=== PATIENT | male | born 1985 | race Caucasian/White ===

== ENCOUNTER 2022-03-13 13:45 | Outpatient (RCR) | payer OTHER, SELFPAY ==
--- NOTE | 2022-01-02 19:14 | PT.OIE ---
Current Diagnoses Cervicalgia (01/02/22) Low back pain, unspecified (01/02/22) Muscle weakness (generalized) (01/02/22) Segmental and somatic dysfunction of sacral region (01/02/22) Visit Care Team Role Provider Type Chauncey Jaramillo DO Attending Provider Non-Staff Family Provider Primary Care Provider Referring Provider Specialty: Family Practice Address: [address] [place] [address], [id number] Email: Physical Therapy Initial Evaluation PT-OP-A Visit Information Start: 12/26/21 18:44 Freq: Status: Active Protocol: Document 01/02/22 14:33 LRN (Rec: 01/02/22 19:04 LRN [id number]) Out-Patient Physical Therapy Visit Information Visit Information Visit Type Initial Evaluation Visit Start Time 14:33 Visit Stop Time 15:26 Total Visit Minutes 53 Visit Number 1 Evaluation Information Evaluation Date 01/02/22 Precautions Precautions Neck pain/migraines with activity. PT-OP-B Current Condition Start: 12/26/21 18:44 Freq: Status: Active Protocol: Document 01/02/22 14:33 LRN (Rec: 01/02/22 19:04 LRN [id number]) Current Condition History of Current Condition Onset Date 1 yr ago after starting new job. Current Complaints Low back pain at level of PSIS 's, R>L, constant pain. History of Current Condition Experiencing constant pain in lower back. 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 Most of the things that is done requires a two person lift, but most do not ask for help. He feels he is broken because not having help available. did an xray and was sent to PT. Hoping to have an MRI. Pt feels he has a herniated disc due to his job. His father's uncle who is an MD believes it is a herniated disc. Has limited duty given by attending doctor (30 days), therefore can ask for help during this timeframe, otherwise not able to get help without a limited duty status . Sometimes sits slouched or lays on stomach. The only thing that helps is IBP 600 mg . Given 30 days limited duty on Dec 13. Pt is R handed. Prior Treatments and Tests X-ray 2 weeks ago. 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 Future Testing and Treatments Planned Plan course of action if not improving: PT > Injection > MRI > surgery (which pt would not want to do). Treatment Goals Patient/Caregiver Goals Pt goal with therapy is to: eliminate constant pain, further testing to determine reason for pain. Prior Functional Status Baseline Function- ADL's Independent Baseline Function- Mobility Independent Baseline Function- Work/School No back pain, soreness after first starting current job. Baseline Function- Other Exercising 2x/week for 1/2 mile runs, push ups and sit ups, planks. Current Functional Impairments (Reported) Functional Limitations- ADL's LBP with bending down and lift objects (case of water) at home. Not able to lie prone due to radiating RLE pain. Functional Limitations- Work/School Not able to ex due to neck and LBP after ex. Personal Factors Other Personal Factors That May Effect Pt job requiring Therapy/Recovery lifting, pushing, pulling of heavy objects, up to 400#. PT-OP-C Subjective Start: 12/26/21 18:44 Freq: Status: Active Protocol: Document 01/02/22 14:33 LRN (Rec: 01/02/22 19:04 LRN [id number]) Patient Questionnaires Oswestry Low Back Index Oswestry Score 30 Oswestry Impairment 20 to 39% Impaired (Score 20- 39) OP-PT Pain Assessment Pain Assessment Grid Paper Pain Assessment Grid Completed Yes Location Neck Pain Location Details Posterior neck pain Intensity 7 Scale Used Numeric (0 - 10) Description Aching,Tightness Frequency Constant Variations/Patterns Variable pain intensity creates migraines Pain Aggravating Factors Activity Pain Alleviating Factors Medication Other Pain Alleviating Factors IBP Low Back Pain Location Details Low back pain at level of PSIS 's, R>L, constant pain. 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 Pain Aggravating Factors Activity Pain Alleviating Factors Medication Other Pain Alleviating Factors IBP PT-OP-H Neuro Start: 12/26/21 18:44 Freq: Status: Active Protocol: Document 01/02/22 14:33 LRN (Rec: 01/02/22 19:04 LRN [id number]) Sensation Evaluation Gross Sensation Gross Sensation WNL Deep Tendon Reflex & Clonus Assessment Deep Tendon Reflex Bilateral Achilles Deep Tendon Reflex 3+ Normal But Brisk Bilateral Patellar Deep Tendon Reflex 2+ Normal PT-OP-J Posture/Palpation/Skin Start: 12/26/21 18:44 Freq: Status: Active Protocol: Document 01/02/22 14:33 LRN (Rec: 01/02/22 19:04 LRN [id number]) Posture Evaluation Position Standing Head/C-Spine Posture Forward Head T-Spine Posture Flattened L-Spine Posture Decreased Lordosis Arm Posture (L) Internally Rotated,(R) Internally Rotated Pelvis Posture Anteriorly Tilted,(R) PSIS Posterior Weight Distribution Balanced Hip Posture (L) Externally Rotated Knee Posture (L) Neutral,(R) Neutral Comments Posture Comments Wide stance, R shoulder low, mild dowagers hump, mild decr thoracic curve, trunk shift left. Palpation Assessment Location Low Back Palpation Location Bilateral PSIS' Palpation Findings Muscle Guarding,Tenderness Palpation Details mobility at L PSIS ( stuck L PSIS). PT-OP-K Range of Motion Start: 12/26/21 18:44 Freq: Status: Active Protocol: Document 01/02/22 14:33 LRN (Rec: 01/02/22 19:04 LR [id number]) Lumbar Spine Range of Motion Lumbar Spine Active Degrees Testing Position Standing Flexion 43 Extension 7 Lateral Flexion Left 13 Lateral Flexion Right 3 ROM Limitations Soft Tissue Tightness Comments Trunk Flexion is 43 deg?s with 30 deg?s hip flexion, Trunk extension is 7 deg?s with 5 deg?s hip extension. Hip Goniometric Range of Motion Hip Right Passive Testing Position Supine Straight Leg Raise 50 Internal Rotation 15 External Rotation 65 Left Passive Testing Position Supine Straight Leg Raise 45 Internal Rotation 10 External Rotation 45 PT-OP-L Special Tests Start: 12/26/21 18:44 Freq: Status: Active Protocol: Document 01/02/22 14:33 LRN (Rec: 01/02/22 19:04 [facility] [id number]) Special Tests Lumbar Spine Special Tests Prone Press Up Test Results Painful at level of PSIS's Straight Leg Raise Test Results 45 L, 50 R. Comments Pain due to LBP. Hip Special Tests [facility] Resisted Hip Flexion Test Results + bilaterally Comments Pain in LBP CHAS Test Results - bilaterally Comments Hip joint pain. PT-OP-M Strength Start: 12/26/21 18:44 Freq: Status: Active Protocol: Document 01/02/22 14:33 LRN (Rec: 01/02/22 19:04 LRN [id number]) Trunk Strength Trunk Manual Muscle Testing Testing Position Supine Core Stabilization Decreased core stability with resisted hip flex. Hand Zoo Veterinarian/Pinch Strength Hand Dominance Hand Dominance Right Knee Strength Knee Manual Muscle Testing Right Flexion (S2) 4- Good- Extension (L3) 4+ Good+ Left Flexion (S2) 5 Normal Extension (L3) 5 Normal Comments Generally 5/5 Ankle/Foot Strength Ankle and Foot Manual Muscle Testing Right Dorsiflexion (L4) 4 Good Comments Generally 5/5 except as indicated above. Left Comments Generally 5/5 Toe Strength Toe Manual Muscle Testing Right Great Toe Flexion 3+ Fair+ Left Great Toe Extension 5 Normal PT-OP-Q Treatments Start: 12/26/21 18:44 Freq: Status: Active Protocol: Document 01/02/22 14:33 LRN (Rec: 01/02/22 19:04 LRN [id number]) Therapeutic Exercises Prone Exercises LISET Prone Exercise Name LISET - held due to poor tolerance to prone positioning . Comments Pt did not tolerate and did not like being in prone positioning Standing Exercises Trunk Ext Standing Exercise Name Active trunk ext Reps/Minutes 5x Self-Care/Home Management Treatment Education Patient Education Home Exercise Program,Pain Management Other Education Discussed results of evaluation, goals, and plan of care (POC). Pt agreeable to goals and POC. Discussed and educated pt in use of ice modality for pain management and discussed use of ice or heat for pain, but recommended use of ice for first during daytime. Activities Self-Care/Home Management Activities I/S pt in standing trunk ext without increasing pain. PT-OP-T Assessment and Plan Start: 12/26/21 18:44 Freq: Status: Active Protocol: Document 01/02/22 14:33 LRN (Rec: 01/02/22 19:04 LRN [id number]) Physical Therapy Assessment Rehab Potential Rehabilitation Potential Good Evaluation Complexity Number of Personal Factors/Comorbidities 1-2 Number of Body Systems Impaired 4 or More Clinical Presentation at Evaluation Evolving Impairments Impairments Activity Tolerance,Pain,ROM, Soft Tissue Mobility,Strength, Transfers Goals Four Impairment Decreased core/pelvic strength /stability Short Term Goal (STG) Improve core strength with pt able to maintain core stability with MMT of LE's. STG Duration 02/01/22 Usp Goal (LTG) Improve core strength with pt able to return to his job with minimal onset of LBP and radiating LE pain. LTG Duration 03/17/22 Three Impairment Decreased trunk and hip mobility Short Term Goal (STG) Improve hip mobility with pt able to sit or drive without increase in LBP. STG Duration 02/01/22 Usp Goal (LTG) Improve trunk mobility with pt able to tolerate prone lying and exercise without onset of LBP or radiating LE pain. LTG Duration 03/17/22 Two Impairment Constant LBP w/radiating pain down R LE, and post neck pain. Impairment LBP at PSIS level & R LE sharp shooting pain rated 4-6/10 and constant. Neck pain rated 5-7/10 with onset of migraine headaches. Short Term Goal (STG) Decrease LBP to intermittent and eliminate R LE radiating pain STG Duration 02/01/22 Tax Analyst Goal (LTG) Eliminate LBP and neck pain with occasional mild onset of soreness with return to work. LTG Duration 03/17/22 One Impairment Lacks appropriate Short Term Goal (STG) STG: Pt will be educated in proper body mechanics for work , transfer and ADLs, and proper sitting and standing posture. STG Duration 02/01/22 Usp Goal (LTG) LTG: Pt will be independent and consistent with a self care HEP to manage his R LE pain with return to work. LTG Duration 03/17/22 Assessment Summary Assessment Pt presents with much muscle guarding and pain in the low back and hips with palpation and ROM. He shows symptoms of R sciatic nerve pain and mild signs of possible disc involvement (R ankle DF and Extensor Hallicus Longus weakness). He is having so much soft tissue involvement of muscle guarding and pain it is unclear where exactly his pain is coming from at this time. Reduction of his soft tissue guarding and pain reduction is needed to start. He demonstrates postural changes of a lateral trunk shift left, and slight weakness of R ankle DF (L4) and Big toe ext (L5). He has mobility at L PSIS ( stuck L SIJ), and decreased hip mobility L>R. Core and pelvic stability is lacking when resistance and strain is placed on his LE's. It is expected that the pt's rehabilitation may need extended time due to the chronic nature of his condition and his ongoing work duties although limited in nature. I would recommend the pt continue limited duty until his pain is minimized and his able to perform bending, squatting heavy lifting, pushing and pulling without initiating onset of LBP. The pt will benefit from skilled physical therapy for focus on decreasing soft tissue muscle guarding and pain, improving lumbar/hip mobility and for hip/core/ pelvic stabilization. Pt education will be focused on proper transfers, body mechanics, self care and home exercises. Physical Therapy Plan Frequency and Duration Frequency of Treatment 2x/Week Plan of Care Start Date 01/02/22 Plan of Care End Date 02/01/22 Therapeutic Interventions Therapeutic Interventions Aquatic Therapy,Home Exercise Program,Joint Mobilizations, Manual Therapy,Neuromuscular Re-education,Patient/Caregiver Education,Self-Care/Home Management,Soft Tissue Mobilization,Taping, Therapeutic Activities, Therapeutic Exercises Modalities Cold Pack/Ice Massage,Electric Stimulation,Hot Packs, Iontophoresis,Traction- Mechanical,Ultrasound Other Therapeutic Interventions Iontophoresis with 4 mg/ml Dexamethasone with Sodium Phosphate. Next Visit Focus/Plan Next Note Type Treatment Note Next Visit Plan Assess Paraspinals Cervical to Lumbar. Check cervical mobility and soft tissue; Check Hip strength. Check Special Tests: Leg length, standing vertical spine loading, manual traction , Slump or standing flexion; Log roll, Scour, Luis Daniel Test, f/b appropriate treatment and HEP. POC: LBP/R sciatic pain rehab possibly neural in nature. Education: proper body mechanics (for work, transfer and ADLs), proper sitting and standing posture, and use of modalities and self STM for pain management. Manual therapy, Modalities for pain, Therapeutic Ex, and HEP: Exers & stretching (neck, back , hips).
--- NOTE | 2022-01-02 19:16 | PT.OIE ---
Current Diagnoses Cervicalgia (01/02/22) Low back pain, unspecified (01/02/22) Muscle weakness (generalized) (01/02/22) Segmental and somatic dysfunction of sacral region (01/02/22) Visit Care Team Role Provider Type Chauncey Jaramillo DO Attending Provider Non-Staff Family Provider Primary Care Provider Referring Provider Specialty: Family Practice Address: [address] [place] [address], [id number] Email: Physical Therapy Initial Evaluation PT-OP-A Visit Information Start: 12/26/21 18:44 Freq: Status: Active Protocol: Document 01/02/22 14:33 LRN (Rec: 01/02/22 19:04 LRN [id number]) Out-Patient Physical Therapy Visit Information Visit Information Visit Type Initial Evaluation Visit Start Time 14:33 Visit Stop Time 15:26 Total Visit Minutes 53 Visit Number 1 Evaluation Information Evaluation Date 01/02/22 Precautions Precautions Neck pain/migraines with activity. PT-OP-B Current Condition Start: 12/26/21 18:44 Freq: Status: Active Protocol: Document 01/02/22 14:33 LRN (Rec: 01/02/22 19:04 LRN [id number]) Current Condition History of Current Condition Onset Date 1 yr ago after starting new job. Current Complaints Low back pain at level of PSIS 's, R>L, constant pain. History of Current Condition Experiencing constant pain in lower back. 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 Most of the things that is done requires a two person lift, but most do not ask for help. He feels he is broken because not having help available. did an xray and was sent to PT. Hoping to have an MRI. Pt feels he has a herniated disc due to his job. His father's uncle who is an MD believes it is a herniated disc. Has limited duty given by attending doctor (30 days), therefore can ask for help during this timeframe, otherwise not able to get help without a limited duty status . Sometimes sits slouched or lays on stomach. The only thing that helps is IBP 600 mg . Given 30 days limited duty on Dec 13. Pt is R handed. Prior Treatments and Tests X-ray 2 weeks ago. 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 Future Testing and Treatments Planned Plan course of action if not improving: PT > Injection > MRI > surgery (which pt would not want to do). Treatment Goals Patient/Caregiver Goals Pt goal with therapy is to: eliminate constant pain, further testing to determine reason for pain. Prior Functional Status Baseline Function- ADL's Independent Baseline Function- Mobility Independent Baseline Function- Work/School No back pain, soreness after first starting current job. Baseline Function- Other Exercising 2x/week for 1/2 mile runs, push ups and sit ups, planks. Current Functional Impairments (Reported) Functional Limitations- ADL's LBP with bending down and lift objects (case of water) at home. Not able to lie prone due to radiating RLE pain. Functional Limitations- Work/School Not able to ex due to neck and LBP after ex. Personal Factors Other Personal Factors That May Effect Pt job requiring Therapy/Recovery lifting, pushing, pulling of heavy objects, up to 400#. PT-OP-C Subjective Start: 12/26/21 18:44 Freq: Status: Active Protocol: Document 01/02/22 14:33 LRN (Rec: 01/02/22 19:04 LRN [id number]) Patient Questionnaires Oswestry Low Back Index Oswestry Score 30 Oswestry Impairment 20 to 39% Impaired (Score 20- 39) OP-PT Pain Assessment Pain Assessment Grid Paper Pain Assessment Grid Completed Yes Location Neck Pain Location Details Posterior neck pain Intensity 7 Scale Used Numeric (0 - 10) Description Aching,Tightness Frequency Constant Variations/Patterns Variable pain intensity creates migraines Pain Aggravating Factors Activity Pain Alleviating Factors Medication Other Pain Alleviating Factors IBP Low Back Pain Location Details Low back pain at level of PSIS 's, R>L, constant pain. 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 Pain Aggravating Factors Activity Pain Alleviating Factors Medication Other Pain Alleviating Factors IBP PT-OP-H Neuro Start: 12/26/21 18:44 Freq: Status: Active Protocol: Document 01/02/22 14:33 LRN (Rec: 01/02/22 19:04 LRN [id number]) Sensation Evaluation Gross Sensation Gross Sensation WNL Deep Tendon Reflex & Clonus Assessment Deep Tendon Reflex Bilateral Achilles Deep Tendon Reflex 3+ Normal But Brisk Bilateral Patellar Deep Tendon Reflex 2+ Normal PT-OP-J Posture/Palpation/Skin Start: 12/26/21 18:44 Freq: Status: Active Protocol: Document 01/02/22 14:33 LRN (Rec: 01/02/22 19:04 LRN [id number]) Posture Evaluation Position Standing Head/C-Spine Posture Forward Head T-Spine Posture Flattened L-Spine Posture Decreased Lordosis Arm Posture (L) Internally Rotated,(R) Internally Rotated Pelvis Posture Anteriorly Tilted,(R) PSIS Posterior Weight Distribution Balanced Hip Posture (L) Externally Rotated Knee Posture (L) Neutral,(R) Neutral Comments Posture Comments Wide stance, R shoulder low, mild dowagers hump, mild decr thoracic curve, trunk shift left. Palpation Assessment Location Low Back Palpation Location Bilateral PSIS' Palpation Findings Muscle Guarding,Tenderness Palpation Details mobility at L PSIS ( stuck L PSIS). PT-OP-K Range of Motion Start: 12/26/21 18:44 Freq: Status: Active Protocol: Document 01/02/22 14:33 LRN (Rec: 01/02/22 19:04 LR [id number]) Lumbar Spine Range of Motion Lumbar Spine Active Degrees Testing Position Standing Flexion 43 Extension 7 Lateral Flexion Left 13 Lateral Flexion Right 3 ROM Limitations Soft Tissue Tightness Comments Trunk Flexion is 43 deg?s with 30 deg?s hip flexion, Trunk extension is 7 deg?s with 5 deg?s hip extension. Hip Goniometric Range of Motion Hip Right Passive Testing Position Supine Straight Leg Raise 50 Internal Rotation 15 External Rotation 65 Left Passive Testing Position Supine Straight Leg Raise 45 Internal Rotation 10 External Rotation 45 PT-OP-L Special Tests Start: 12/26/21 18:44 Freq: Status: Active Protocol: Document 01/02/22 14:33 LRN (Rec: 01/02/22 19:04 [facility] [id number]) Special Tests Lumbar Spine Special Tests Prone Press Up Test Results Painful at level of PSIS's Straight Leg Raise Test Results 45 L, 50 R. Comments Pain due to LBP. Hip Special Tests [facility] Resisted Hip Flexion Test Results + bilaterally Comments Pain in LBP CHAS Test Results - bilaterally Comments Hip joint pain. PT-OP-M Strength Start: 12/26/21 18:44 Freq: Status: Active Protocol: Document 01/02/22 14:33 LRN (Rec: 01/02/22 19:04 LRN [id number]) Trunk Strength Trunk Manual Muscle Testing Testing Position Supine Core Stabilization Decreased core stability with resisted hip flex. Hand Muck Operator/Pinch Strength Hand Dominance Hand Dominance Right Knee Strength Knee Manual Muscle Testing Right Flexion (S2) 4- Good- Extension (L3) 4+ Good+ Left Flexion (S2) 5 Normal Extension (L3) 5 Normal Comments Generally 5/5 Ankle/Foot Strength Ankle and Foot Manual Muscle Testing Right Dorsiflexion (L4) 4 Good Comments Generally 5/5 except as indicated above. Left Comments Generally 5/5 Toe Strength Toe Manual Muscle Testing Right Great Toe Flexion 3+ Fair+ Left Great Toe Extension 5 Normal PT-OP-Q Treatments Start: 12/26/21 18:44 Freq: Status: Active Protocol: Document 01/02/22 14:33 LRN (Rec: 01/02/22 19:04 LRN [id number]) Therapeutic Exercises Prone Exercises LISET Prone Exercise Name LISET - held due to poor tolerance to prone positioning . Comments Pt did not tolerate and did not like being in prone positioning Standing Exercises Trunk Ext Standing Exercise Name Active trunk ext Reps/Minutes 5x Self-Care/Home Management Treatment Education Patient Education Home Exercise Program,Pain Management Other Education Discussed results of evaluation, goals, and plan of care (POC). Pt agreeable to goals and POC. Discussed and educated pt in use of ice modality for pain management and discussed use of ice or heat for pain, but recommended use of ice for first during daytime. Activities Self-Care/Home Management Activities I/S pt in standing trunk ext without increasing pain. PT-OP-T Assessment and Plan Start: 12/26/21 18:44 Freq: Status: Active Protocol: Document 01/02/22 14:33 LRN (Rec: 01/02/22 19:04 LRN [id number]) Physical Therapy Assessment Rehab Potential Rehabilitation Potential Good Evaluation Complexity Number of Personal Factors/Comorbidities 1-2 Number of Body Systems Impaired 4 or More Clinical Presentation at Evaluation Evolving Impairments Impairments Activity Tolerance,Pain,ROM, Soft Tissue Mobility,Strength, Transfers Goals Four Impairment Decreased core/pelvic strength /stability Short Term Goal (STG) Improve core strength with pt able to maintain core stability with MMT of LE's. STG Duration 02/01/22 Group Home Goal (LTG) Improve core strength with pt able to return to his job with minimal onset of LBP and radiating LE pain. LTG Duration 03/17/22 Three Impairment Decreased trunk and hip mobility Short Term Goal (STG) Improve hip mobility with pt able to sit or drive without increase in LBP. STG Duration 02/01/22 Group Home Goal (LTG) Improve trunk mobility with pt able to tolerate prone lying and exercise without onset of LBP or radiating LE pain. LTG Duration 03/17/22 Two Impairment Constant LBP w/radiating pain down R LE, and post neck pain. Impairment LBP at PSIS level & R LE sharp shooting pain rated 4-6/10 and constant. Neck pain rated 5-7/10 with onset of migraine headaches. Short Term Goal (STG) Decrease LBP to intermittent and eliminate R LE radiating pain STG Duration 02/01/22 Power Press Tender Goal (LTG) Eliminate LBP and neck pain with occasional mild onset of soreness with return to work. LTG Duration 03/17/22 One Impairment Lacks appropriate Short Term Goal (STG) STG: Pt will be educated in proper body mechanics for work , transfer and ADLs, and proper sitting and standing posture. STG Duration 01/12/22 Group Home Goal (LTG) LTG: Pt will be independent and consistent with a self care HEP to manage his R LE pain with return to work. LTG Duration 03/17/22 Assessment Summary Assessment Pt presents with much muscle guarding and pain in the low back and hips with palpation and ROM. He shows symptoms of R sciatic nerve pain and mild signs of possible disc involvement (R ankle DF and Extensor Hallicus Longus weakness). He is having so much soft tissue involvement of muscle guarding and pain it is unclear where exactly his pain is coming from at this time. Reduction of his soft tissue guarding and pain reduction is needed to start. He demonstrates postural changes of a lateral trunk shift left, and slight weakness of R ankle DF (L4) and Big toe ext (L5). He has mobility at L PSIS ( stuck L SIJ), and decreased hip mobility L>R. Core and pelvic stability is lacking when resistance and strain is placed on his LE's. It is expected that the pt's rehabilitation may need extended time due to the chronic nature of his condition and his ongoing work duties although limited in nature. I would recommend the pt continue limited duty until his pain is minimized and his able to perform bending, squatting heavy lifting, pushing and pulling without initiating onset of LBP. The pt will benefit from skilled physical therapy for focus on decreasing soft tissue muscle guarding and pain, improving lumbar/hip mobility and for hip/core/ pelvic stabilization. Pt education will be focused on proper transfers, body mechanics, self care and home exercises. Physical Therapy Plan Frequency and Duration Frequency of Treatment 2x/Week Plan of Care Start Date 01/02/22 Plan of Care End Date 03/17/22 Therapeutic Interventions Therapeutic Interventions Aquatic Therapy,Home Exercise Program,Joint Mobilizations, Manual Therapy,Neuromuscular Re-education,Patient/Caregiver Education,Self-Care/Home Management,Soft Tissue Mobilization,Taping, Therapeutic Activities, Therapeutic Exercises Modalities Cold Pack/Ice Massage,Electric Stimulation,Hot Packs, Iontophoresis,Traction- Mechanical,Ultrasound Other Therapeutic Interventions Iontophoresis with 4 mg/ml Dexamethasone with Sodium Phosphate. Next Visit Focus/Plan Next Note Type Treatment Note Next Visit Plan Assess Paraspinals Cervical to Lumbar. Check cervical mobility and soft tissue; Check Hip strength. Check Special Tests: Leg length, standing vertical spine loading, manual traction , Slump or standing flexion; Log roll, Scour, Luis Daniel Test, f/b appropriate treatment and HEP. POC: LBP/R sciatic pain rehab possibly neural in nature. Education: proper body mechanics (for work, transfer and ADLs), proper sitting and standing posture, and use of modalities and self STM for pain management. Manual therapy, Modalities for pain, Therapeutic Ex, and HEP: Exers & stretching (neck, back , hips).
--- NOTE | 2022-01-05 14:15 | PT.OTN ---
Current Diagnoses Cervicalgia (01/05/22) Low back pain, unspecified (01/05/22) Muscle weakness (generalized) (01/05/22) Segmental and somatic dysfunction of sacral region (01/05/22) Physical Therapy Treatment Note PT-OP-A Visit Information Start: 12/26/21 18:44 Freq: Status: Active Protocol: Document 01/05/22 13:04 LRN (Rec: 01/05/22 14:14 LRN [id number]) Out-Patient Physical Therapy Visit Information Visit Information Visit Type Treatment Note Visit Start Time 13:04 Visit Stop Time 13:52 Total Visit Minutes 48 Visit Number 2 Evaluation Information Evaluation Date 01/02/22 Precautions Precautions Neck pain/migraines with activity. PT-OP-B Current Condition Start: 12/26/21 18:44 Freq: Status: Active Protocol: Document 01/02/22 14:33 LRN (Rec: 01/02/22 19:04 LRN [id number]) Current Condition History of Current Condition Onset Date 1 yr ago after starting new job. Current Complaints Low back pain at level of PSIS 's, R>L, constant pain. History of Current Condition Experiencing constant pain in lower back. 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 Most of the things that is done requires a two person lift, but most do not ask for help. He feels he is broken because not having help available. did an xray and was sent to PT. Hoping to have an MRI. Pt feels he has a herniated disc due to his job. His father's uncle who is an MD believes it is a herniated disc. Has limited duty given by attending doctor (30 days), therefore can ask for help during this timeframe, otherwise not able to get help without a limited duty status . Sometimes sits slouched or lays on stomach. The only thing that helps is IBP 600 mg . Given 30 days limited duty on Dec 13. Pt is R handed. Prior Treatments and Tests X-ray 2 weeks ago. 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 Future Testing and Treatments Planned Plan course of action if not improving: PT > Injection > MRI > surgery (which pt would not want to do). Treatment Goals Patient/Caregiver Goals Pt goal with therapy is to: eliminate constant pain, further testing to determine reason for pain. Prior Functional Status Baseline Function- ADL's Independent Baseline Function- Mobility Independent Baseline Function- Work/School No back pain, soreness after first starting current job. Baseline Function- Other Exercising 2x/week for 1/2 mile runs, push ups and sit ups, planks. Current Functional Impairments (Reported) Functional Limitations- ADL's LBP with bending down and lift objects (case of water) at home. Not able to lie prone due to radiating RLE pain. Functional Limitations- Work/School Not able to ex due to neck and LBP after ex. Personal Factors Other Personal Factors That May Effect Pt job requiring Therapy/Recovery lifting, pushing, pulling of heavy objects, up to 400#. PT-OP-C Subjective Start: 12/26/21 18:44 Freq: Status: Active Protocol: Document 01/05/22 13:04 LRN (Rec: 01/05/22 14:14 LRN [id number]) OP-PT Subjective Patient Comments Patient Comments Same, no change. Pain in LB is 6/10 and R SIJ. PT-OP-H Neuro Start: 12/26/21 18:44 Freq: Status: Active Protocol: Document 01/02/22 14:33 LRN (Rec: 01/02/22 19:04 LRN [id number]) Sensation Evaluation Gross Sensation Gross Sensation WNL Deep Tendon Reflex & Clonus Assessment Deep Tendon Reflex Bilateral Achilles Deep Tendon Reflex 3+ Normal But Brisk Bilateral Patellar Deep Tendon Reflex 2+ Normal PT-OP-J Posture/Palpation/Skin Start: 12/26/21 18:44 Freq: Status: Active Protocol: Document 01/02/22 14:33 LRN (Rec: 01/02/22 19:04 LRN [id number]) Posture Evaluation Position Standing Head/C-Spine Posture Forward Head T-Spine Posture Flattened L-Spine Posture Decreased Lordosis Arm Posture (L) Internally Rotated,(R) Internally Rotated Pelvis Posture Anteriorly Tilted,(R) PSIS Posterior Weight Distribution Balanced Hip Posture (L) Externally Rotated Knee Posture (L) Neutral,(R) Neutral Comments Posture Comments Wide stance, R shoulder low, mild dowagers hump, mild decr thoracic curve, trunk shift left. Palpation Assessment Location Low Back Palpation Location Bilateral PSIS' Palpation Findings Muscle Guarding,Tenderness Palpation Details mobility at L PSIS ( stuck L PSIS). PT-OP-K Range of Motion Start: 12/26/21 18:44 Freq: Status: Active Protocol: Document 01/05/22 13:04 LRN (Rec: 01/05/22 14:14 LRN [id number]) Cervical Spine Range of Motion Cervical Spine Active Percentage Testing Position Sitting Flexion 100 Rotation Left 60 Rotation Right 50 Lateral Flexion Left 100 Lateral Flexion Right 100 ROM Limitations Soft Tissue Tightness,Pain PT-OP-L Special Tests Start: 12/26/21 18:44 Freq: Status: Active Protocol: Document 01/02/22 14:33 LRN (Rec: 01/02/22 19:04 LRN [id number]) Special Tests Lumbar Spine Special Tests Prone Press Up Test Results Painful at level of PSIS's Straight Leg Raise Test Results 45 L, 50 R. Comments Pain due to LBP. Hip Special Tests [facility] Resisted Hip Flexion Test Results + bilaterally Comments Pain in LBP CHAS Test Results - bilaterally Comments Hip joint pain. PT-OP-M Strength Start: 12/26/21 18:44 Freq: Status: Active Protocol: Document 01/02/22 14:33 LRN (Rec: 01/02/22 19:04 LRN [id number]) Trunk Strength Trunk Manual Muscle Testing Testing Position Supine Core Stabilization Decreased core stability with resisted hip flex. Hand Consumer Insight Analyst/Pinch Strength Hand Dominance Hand Dominance Right Knee Strength Knee Manual Muscle Testing Right Flexion (S2) 4- Good- Extension (L3) 4+ Good+ Left Flexion (S2) 5 Normal Extension (L3) 5 Normal Comments Generally 5/5 Ankle/Foot Strength Ankle and Foot Manual Muscle Testing Right Dorsiflexion (L4) 4 Good Comments Generally 5/5 except as indicated above. Left Comments Generally 5/5 Toe Strength Toe Manual Muscle Testing Right Great Toe Flexion 3+ Fair+ Left Great Toe Extension 5 Normal PT-OP-Q Treatments Start: 12/26/21 18:44 Freq: Status: Active Protocol: Document 01/05/22 13:04 LRN (Rec: 01/05/22 14:14 LRN [id number]) Therapeutic Exercises Prone Exercises LISET Prone Exercise Name LISET Reps/Minutes 1' for prone lying, later in therapy 3' for tolerance, positioning, & doing Comments Pt tolerated up on elbows Standing Exercises Trunk Ext Standing Exercise Name Active trunk ext Reps/Minutes 10x Manual Therapy Treatment Manual Traction Lumbar Details Lumbar Traction Body Position Supine Reps/Duration 13' Comments Tried 2 different positions of traction, with therapist kneeling and therapist semi- standing for traciton. Self-Care/Home Management Treatment Education Patient Education Body Mechanics,Pain Management ,Posture Other Education Discussed and recommended use of cryotherapy to the low back after therapy and when in pain. Educated and discussed with pt at length proper posturing in sitting and standing. Educated and discussed proper body mechanics and proper body mechanics for ADLs. Activities Self-Care/Home Management Activities Issued handouts for in proper body mechanics for work, transfer and ADLs, and proper sitting and standing posture. PT-OP-T Assessment and Plan Start: 12/26/21 18:44 Freq: Status: Active Protocol: Document 01/05/22 13:04 LRN (Rec: 01/05/22 14:14 LRN [id number]) Physical Therapy Assessment Goals Four Impairment Decreased core/pelvic strength /stability Short Term Goal (STG) Improve core strength with pt able to maintain core stability with MMT of LE's. STG Duration 02/01/22 Longterm Goal (LTG) Improve core strength with pt able to return to his job with minimal onset of LBP and radiating LE pain. LTG Duration 03/17/22 Three Impairment Decreased trunk and hip mobility Short Term Goal (STG) Improve hip mobility with pt able to sit or drive without increase in LBP. STG Duration 02/01/22 Longterm Goal (LTG) Improve trunk mobility with pt able to tolerate prone lying and exercise without onset of LBP or radiating LE pain. LTG Duration 03/17/22 Two Impairment Constant LBP w/radiating pain down R LE, and post neck pain. Impairment LBP at PSIS level & R LE sharp shooting pain rated 4-6/10 and constant. Neck pain rated 5-7/10 with onset of migraine headaches. Short Term Goal (STG) Decrease LBP to intermittent and eliminate R LE radiating pain STG Duration 02/01/22 Shoemaking Cutter Goal (LTG) Eliminate LBP and neck pain with occasional mild onset of soreness with return to work. LTG Duration 03/17/22 One Impairment Lacks appropriate Short Term Goal (STG) STG: Pt will be educated in proper body mechanics for work , transfer and ADLs, and proper sitting and standing posture. STG Duration 01/12/22 (01/05/22: MET GOAL) Shoemaking Cutter Goal (LTG) LTG: Pt will be independent and consistent with a self care HEP to manage his R LE pain with return to work. LTG Duration 03/17/22 Progress Towards Goals Progress Comments MET STG #1. Assessment Summary Assessment Traction: Lumbar traction -no improvement in LBP, pt preferred positioning supine without traction, possibly due to muscle guarding in the low back, pt not able to relax. Trunk Rot: L Trunk more painful than to R. Cervical ROM: decr R Rot and R SB due to c/o L neck pain ~Lev Scap region. Pt receptive to education training for posture , body mechanics and ADLs. Physical Therapy Plan Frequency and Duration Frequency of Treatment 2x/Week Plan of Care Start Date 01/02/22 Plan of Care End Date 03/17/22 Next Visit Focus/Plan Next Note Type Treatment Note Next Visit Plan Manual assess Paraspinals Cervical to Lumbar. Check cervical active EXT and soft tissue; Check Hip strength. Special Tests check: Leg length, standing vertical spine loading, manual traction , Slump or standing flexion; Log roll, Scour, Luis Daniel Test, f/b appropriate treatment and HEP. POC: LBP/R sciatic pain rehab possibly neural in nature. EDUCATION in use of modalities and self STM for pain management. Manual therapy, Modalities for pain, Therapeutic Ex, and HEP: Exers & stretching (neck, back , hips).
--- NOTE | 2022-01-09 17:13 | PT.OTN ---
Current Diagnoses Cervicalgia (01/09/22) Low back pain, unspecified (01/09/22) Muscle weakness (generalized) (01/09/22) Segmental and somatic dysfunction of sacral region (01/09/22) Physical Therapy Treatment Note PT-OP-A Visit Information Start: 12/26/21 18:44 Freq: Status: Active Protocol: Document 01/09/22 13:04 LRN (Rec: 01/09/22 17:09 LRN [id number]) Out-Patient Physical Therapy Visit Information Visit Information Visit Type Treatment Note Visit Start Time 13:04 Visit Stop Time 13:50 Total Visit Minutes 46 Visit Number 3 Evaluation Information Evaluation Date 01/02/22 Precautions Precautions Neck pain/migraines with activity. PT-OP-B Current Condition Start: 12/26/21 18:44 Freq: Status: Active Protocol: Document 01/02/22 14:33 LRN (Rec: 01/02/22 19:04 LRN [id number]) Current Condition History of Current Condition Onset Date 1 yr ago after starting new job. Current Complaints Low back pain at level of PSIS 's, R>L, constant pain. History of Current Condition Experiencing constant pain in lower back. 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 Most of the things that is done requires a two person lift, but most do not ask for help. He feels he is broken because not having help available. did an xray and was sent to PT. Hoping to have an MRI. Pt feels he has a herniated disc due to his job. His father's uncle who is an MD believes it is a herniated disc. Has limited duty given by attending doctor (30 days), therefore can ask for help during this timeframe, otherwise not able to get help without a limited duty status . Sometimes sits slouched or lays on stomach. The only thing that helps is IBP 600 mg . Given 30 days limited duty on Dec 13. Pt is R handed. Prior Treatments and Tests X-ray 2 weeks ago. 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 Future Testing and Treatments Planned Plan course of action if not improving: PT > Injection > MRI > surgery (which pt would not want to do). Treatment Goals Patient/Caregiver Goals Pt goal with therapy is to: eliminate constant pain, further testing to determine reason for pain. Prior Functional Status Baseline Function- ADL's Independent Baseline Function- Mobility Independent Baseline Function- Work/School No back pain, soreness after first starting current job. Baseline Function- Other Exercising 2x/week for 1/2 mile runs, push ups and sit ups, planks. Current Functional Impairments (Reported) Functional Limitations- ADL's LBP with bending down and lift objects (case of water) at home. Not able to lie prone due to radiating RLE pain. Functional Limitations- Work/School Not able to ex due to neck and LBP after ex. Personal Factors Other Personal Factors That May Effect Pt job requiring Therapy/Recovery lifting, pushing, pulling of heavy objects, up to 400#. PT-OP-C Subjective Start: 12/26/21 18:44 Freq: Status: Active Protocol: Document 01/09/22 13:04 LRN (Rec: 01/09/22 17:09 LRN [id number]) OP-PT Subjective Patient Comments Patient Comments NO change. PT-OP-H Neuro Start: 12/26/21 18:44 Freq: Status: Active Protocol: Document 01/02/22 14:33 LRN (Rec: 01/02/22 19:04 LRN [id number]) Sensation Evaluation Gross Sensation Gross Sensation WNL Deep Tendon Reflex & Clonus Assessment Deep Tendon Reflex Bilateral Achilles Deep Tendon Reflex 3+ Normal But Brisk Bilateral Patellar Deep Tendon Reflex 2+ Normal PT-OP-J Posture/Palpation/Skin Start: 12/26/21 18:44 Freq: Status: Active Protocol: Document 01/09/22 13:04 LRN (Rec: 01/09/22 17:09 LRN [id number]) Palpation Assessment Location Leg length Palpation Location Medial malleolus Palpation Details Supine: Slightly long on the R ; Long sit - equal (slight anterior rot of R innominate). PT-OP-K Range of Motion Start: 12/26/21 18:44 Freq: Status: Active Protocol: Document 01/05/22 13:04 LRN (Rec: 01/05/22 14:14 LRN [id number]) Cervical Spine Range of Motion Cervical Spine Active Percentage Testing Position Sitting Flexion 100 Rotation Left 60 Rotation Right 50 Lateral Flexion Left 100 Lateral Flexion Right 100 ROM Limitations Soft Tissue Tightness,Pain PT-OP-L Special Tests Start: 12/26/21 18:44 Freq: Status: Active Protocol: Document 01/09/22 13:04 LRN (Rec: 01/09/22 17:12 LRN [id number]) Special Tests Lumbar Spine Special Tests Luis Daniel Test Results - right, + left Comments Testing L - R LBP Slump Test Results + Comments LBP/R hip pain Manual Traction Test Results - Comments No change in back pain Vertical Spine Loading Test Results + Comments LBP Hip Special Tests Log Roll Test Test Results + Comments LBP/R hip pain with IR Scour Test Test Results + Comments LBP/R hip pain PT-OP-M Strength Start: 12/26/21 18:44 Freq: Status: Active Protocol: Document 01/02/22 14:33 LRN (Rec: 01/02/22 19:04 LRN [id number]) Trunk Strength Trunk Manual Muscle Testing Testing Position Supine Core Stabilization Decreased core stability with resisted hip flex. Hand Anchor Tack Puller/Pinch Strength Hand Dominance Hand Dominance Right Knee Strength Knee Manual Muscle Testing Right Flexion (S2) 4- Good- Extension (L3) 4+ Good+ Left Flexion (S2) 5 Normal Extension (L3) 5 Normal Comments Generally 5/5 Ankle/Foot Strength Ankle and Foot Manual Muscle Testing Right Dorsiflexion (L4) 4 Good Comments Generally 5/5 except as indicated above. Left Comments Generally 5/5 Toe Strength Toe Manual Muscle Testing Right Great Toe Flexion 3+ Fair+ Left Great Toe Extension 5 Normal PT-OP-Q Treatments Start: 12/26/21 18:44 Freq: Status: Active Protocol: Document 01/09/22 13:04 LRN (Rec: 01/09/22 17:09 LRN [id number]) Therapeutic Exercises Supine Exercises TA tightening Supine Exercise Name TA tightening Sidelying Exercises TA tightening Sidelying Exercise Name TA tightening Side bilateral Reps/Minutes 10 x holding 2 breaths Manual Therapy Treatment Soft Tissue Mobilization Sacral balancing Body Location Inferior glide L sacral sulcus , PA of L ALEX with minimal pressure Body Position Prone Comments PA of L ALEX resulted in c/o R SI lateral border and Piriformis discomfort. PT-OP-R Modalities Start: 12/26/21 18:44 Freq: Status: Active Protocol: Document 01/09/22 13:04 LRN (Rec: 01/09/22 17:09 LRN [id number]) Electric Stimulation Electric Stimulation Interferential Current (IFC) Body Location [Sacrum] for R SIJ pain Duration (Minutes) 10 Intensity 8 Target/Sweep Sweep Patient Position Supine Combined With Heat/Cold Hot Pack PT-OP-T Assessment and Plan Start: 12/26/21 18:44 Freq: Status: Active Protocol: Document 01/09/22 13:04 LRN (Rec: 01/09/22 17:09 LRN [id number]) Physical Therapy Assessment Goals Four Impairment Decreased core/pelvic strength /stability Short Term Goal (STG) Improve core strength with pt able to maintain core stability with MMT of LE's. STG Duration 02/01/22 Group Home Goal (LTG) Improve core strength with pt able to return to his job with minimal onset of LBP and radiating LE pain. LTG Duration 03/17/22 Three Impairment Decreased trunk and hip mobility Short Term Goal (STG) Improve hip mobility with pt able to sit or drive without increase in LBP. STG Duration 02/01/22 Food Specialist Goal (LTG) Improve trunk mobility with pt able to tolerate prone lying and exercise without onset of LBP or radiating LE pain. LTG Duration 03/17/22 Two Impairment Constant LBP w/radiating pain down R LE, and post neck pain. Impairment LBP at PSIS level & R LE sharp shooting pain rated 4-6/10 and constant. Neck pain rated 5-7/10 with onset of migraine headaches. Short Term Goal (STG) Decrease LBP to intermittent and eliminate R LE radiating pain STG Duration 02/01/22 Food Specialist Goal (LTG) Eliminate LBP and neck pain with occasional mild onset of soreness with return to work. LTG Duration 03/17/22 One Impairment Lacks appropriate Short Term Goal (STG) STG: Pt will be educated in proper body mechanics for work , transfer and ADLs, and proper sitting and standing posture. STG Duration 01/12/22 (01/05/22: MET GOAL) Food Specialist Goal (LTG) LTG: Pt will be independent and consistent with a self care HEP to manage his R LE pain with return to work. LTG Duration 03/17/22 Assessment Summary Assessment Pt is tight in R paraspinals from cervical to lumbar region with possible overall R spine rotation. Pt had + response to MH/IFES with relaxation noted at end of treatment per pt verbal response. Physical Therapy Plan Frequency and Duration Frequency of Treatment 2x/Week Plan of Care Start Date 01/02/22 Plan of Care End Date 03/17/22 Next Visit Focus/Plan Next Note Type Treatment Note Next Visit Plan Check cervical active EXT and soft tissue response; Check Hip strength. Start LE neural /hamstring stretch and educate pt in sitting posture for driving, . Special Tests check: Log roll , f/b appropriate treatment and HEP Therapeutic Ex, and HEP: (hip IR rot stretch and general stretching, L Illiopsoas stretch, trunk flex when tolerated, core stab). EDUCATION in use of modalities and self STM for pain management. Manual therapy (correct R innominate municipal clerk rot/L innominate anterior rot & sacral balancing as needed), MH/IFES for pain. POC: LBP/R sciatic pain rehab possibly neural disc in nature.
--- NOTE | 2022-01-12 16:07 | PT.OTN ---
Current Diagnoses Cervicalgia (01/12/22) Low back pain, unspecified (01/12/22) Muscle weakness (generalized) (01/12/22) Segmental and somatic dysfunction of sacral region (01/12/22) Physical Therapy Treatment Note PT-OP-A Visit Information Start: 12/26/21 18:44 Freq: Status: Active Protocol: Document 01/12/22 13:01 LRN (Rec: 01/12/22 13:51 LRN [id number]) Out-Patient Physical Therapy Visit Information Visit Information Visit Type Treatment Note Visit Start Time 13:01 Visit Stop Time 13:50 Total Visit Minutes 49 Visit Number 4 Evaluation Information Evaluation Date 01/02/22 Precautions Precautions Neck pain/migraines with activity. PT-OP-B Current Condition Start: 12/26/21 18:44 Freq: Status: Active Protocol: Document 01/02/22 14:33 LRN (Rec: 01/02/22 19:04 LRN [id number]) Current Condition History of Current Condition Onset Date 1 yr ago after starting new job. Current Complaints Low back pain at level of PSIS 's, R>L, constant pain. History of Current Condition Experiencing constant pain in lower back. 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 Most of the things that is done requires a two person lift, but most do not ask for help. He feels he is broken because not having help available. did an xray and was sent to PT. Hoping to have an MRI. Pt feels he has a herniated disc due to his job. His father's uncle who is an MD believes it is a herniated disc. Has limited duty given by attending doctor (30 days), therefore can ask for help during this timeframe, otherwise not able to get help without a limited duty status . Sometimes sits slouched or lays on stomach. The only thing that helps is IBP 600 mg . Given 30 days limited duty on Dec 13. Pt is R handed. Prior Treatments and Tests X-ray 2 weeks ago. 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 Future Testing and Treatments Planned Plan course of action if not improving: PT > Injection > MRI > surgery (which pt would not want to do). Treatment Goals Patient/Caregiver Goals Pt goal with therapy is to: eliminate constant pain, further testing to determine reason for pain. Prior Functional Status Baseline Function- ADL's Independent Baseline Function- Mobility Independent Baseline Function- Work/School No back pain, soreness after first starting current job. Baseline Function- Other Exercising 2x/week for 1/2 mile runs, push ups and sit ups, planks. Current Functional Impairments (Reported) Functional Limitations- ADL's LBP with bending down and lift objects (case of water) at home. Not able to lie prone due to radiating RLE pain. Functional Limitations- Work/School Not able to ex due to neck and LBP after ex. Personal Factors Other Personal Factors That May Effect Pt job requiring Therapy/Recovery lifting, pushing, pulling of heavy objects, up to 400#. PT-OP-C Subjective Start: 12/26/21 18:44 Freq: Status: Active Protocol: Document 01/12/22 13:01 LRN (Rec: 01/12/22 13:51 LRN [id number]) OP-PT Subjective Patient Comments Patient Comments Having shock pain if bending over a little. Had to take IBP for neck pain. Since last session, had L hip LBP, now gone. Same as usual: R SIJ and neck pain and @ R SIJ little shocks 3-4 x/day. Pt reports decreased LBP after treatment. PT-OP-H Neuro Start: 12/26/21 18:44 Freq: Status: Active Protocol: Document 01/02/22 14:33 LRN (Rec: 01/02/22 19:04 LRN [id number]) Sensation Evaluation Gross Sensation Gross Sensation WNL Deep Tendon Reflex & Clonus Assessment Deep Tendon Reflex Bilateral Achilles Deep Tendon Reflex 3+ Normal But Brisk Bilateral Patellar Deep Tendon Reflex 2+ Normal PT-OP-J Posture/Palpation/Skin Start: 12/26/21 18:44 Freq: Status: Active Protocol: Document 01/09/22 13:04 LRN (Rec: 01/09/22 17:09 LRN [id number]) Palpation Assessment Location Leg length Palpation Location Medial malleolus Palpation Details Supine: Slightly long on the R ; Long sit - equal (slight anterior rot of R innominate). PT-OP-K Range of Motion Start: 12/26/21 18:44 Freq: Status: Active Protocol: Document 01/12/22 13:01 LRN (Rec: 01/12/22 13:51 LR [id number]) Cervical Spine Range of Motion Cervical Spine Active Degrees Testing Position Sitting Flexion 50 Extension 32 Rotation Left 50 Rotation Right 51 Lateral Flexion Left 22 Lateral Flexion Right 25 PT-OP-L Special Tests Start: 12/26/21 18:44 Freq: Status: Active Protocol: Document 01/09/22 13:04 LRN (Rec: 01/09/22 17:12 LR [id number]) Special Tests Lumbar Spine Special Tests Luis Daniel Test Results - right, + left Comments Testing L - R LBP Slump Test Results + Comments LBP/R hip pain Manual Traction Test Results - Comments No change in back pain Vertical Spine Loading Test Results + Comments LBP Hip Special Tests Log Roll Test Test Results + Comments LBP/R hip pain with IR Scour Test Test Results + Comments LBP/R hip pain PT-OP-M Strength Start: 12/26/21 18:44 Freq: Status: Active Protocol: Document 01/12/22 13:01 LRN (Rec: 01/12/22 13:51 [facility] [id number]) Hip Strength Hip Manual Muscle Testing Right Flexion (L2) 3 Fair Extension (S1) 3 Fair Abduction 5 Normal Adduction 5 Normal External Rotation 3 Fair Internal Rotation 3+ Fair+ Left Flexion (L2) 3+ Fair+ Extension (S1) 3 Fair Abduction 3 Fair Adduction 4 Good External Rotation 3+ Fair+ Internal Rotation 3+ Fair+ PT-OP-Q Treatments Start: 12/26/21 18:44 Freq: Status: Active Protocol: Document 01/12/22 13:01 LRN (Rec: 01/12/22 13:51 LR [id number]) Therapeutic Exercises Supine Exercises Hip Flex Supine Exercise Name SLR w/isometric hold Side bilateral Comments MMT taken LE neural/hamstring stretch Supine Exercise Name LE neural/hamstring Side bilateral Reps/Minutes 4' Prone Exercises Hip Ext Prone Exercise Name Hip Ext - Raymond hold Side bilateral Comments MMT taken Sidelying Exercises Hip AB/AD Sidelying Exercise Name Hip AB/AD raymond holding Side bilateral Comments Weak L hip, normal R hip. MMT taken Other Exercises Transfer training Other Exercise Name Transfer training sit<>supine Comments Much phys & v cuing needed. Self-Care/Home Management Treatment Education Other Education Educated pt in sidee positiioning for resting. Educated and discussed proper sitting posture. Educated and discussed proper transfer sup<>sit. Educated pt in use of RICE for pain management. Discussed problem solving ideas for best possible workplace positioning as much as pt can possibly modify, due with the described broken equipment (chairs) and objects he works on daily. Activities Self-Care/Home Management Activities Issued handout for proper transfer sup<>sit, best rest position in sidelie and RICE technique. PT-OP-R Modalities Start: 12/26/21 18:44 Freq: Status: Active Protocol: Document 01/12/22 13:01 LRN (Rec: 01/12/22 13:51 LRN [id number]) Electric Stimulation Electric Stimulation Interferential Current (IFC) Body Location [Sacrum] for R SIJ pain Duration (Minutes) 20 Intensity 10 Target/Sweep Sweep Patient Position Supine Combined With Heat/Cold Hot Pack PT-OP-T Assessment and Plan Start: 12/26/21 18:44 Freq: Status: Active Protocol: Document 01/12/22 13:01 LRN (Rec: 01/12/22 13:51 LRN [id number]) Physical Therapy Assessment Goals Four Impairment Decreased core/pelvic strength /stability Short Term Goal (STG) Improve core strength with pt able to maintain core stability with MMT of LE's. STG Duration 02/01/22 Machining Department Supervisor Goal (LTG) Improve core strength with pt able to return to his job with minimal onset of LBP and radiating LE pain. LTG Duration 03/17/22 Three Impairment Decreased trunk and hip mobility Short Term Goal (STG) Improve hip mobility with pt able to sit or drive without increase in LBP. STG Duration 02/01/22 [facility] Goal (LTG) Improve trunk mobility with pt able to tolerate prone lying and exercise without onset of LBP or radiating LE pain. LTG Duration 03/17/22 Two Impairment Constant LBP w/radiating pain down R LE, and post neck pain. Impairment LBP at PSIS level & R LE sharp shooting pain rated 4-6/10 and constant. Neck pain rated 5-7/10 with onset of migraine headaches. Short Term Goal (STG) Decrease LBP to intermittent and eliminate R LE radiating pain STG Duration 02/01/22 Machining Department Supervisor Goal (LTG) Eliminate LBP and neck pain with occasional mild onset of soreness with return to work. LTG Duration 03/17/22 One Impairment Lacks appropriate Short Term Goal (STG) STG: Pt will be educated in proper body mechanics for work , transfer and ADLs, and proper sitting and standing posture. 01/12/22: Pt re-educated in proper transfer sit<>supine. STG Duration 01/12/22 (01/05/22: MET GOAL) [facility] Goal (LTG) LTG: Pt will be independent and consistent with a self care HEP to manage his R LE pain with return to work. 01/12/22: Educated pt in proper posture, ADLs, use of ice for pain mgmt (LAURA). LTG Duration 03/17/22 progressed 01/12/22. Assessment Summary Assessment Pt has many concerns of positioning while at work that are difficulty to almost impossible to modify to accomodate his ongoing back pain from bent over posturing for his work duties. An ergonomic assessment would be helpful to identify workplace needed changes/modifications to minimize back pain. He demonstrates bilateral hip weakness except R hip AB/AD is 5/5. Pt has + response to MH /IFES for pain reduction and ms relaxation. Physical Therapy Plan Frequency and Duration Frequency of Treatment 2x/Week Plan of Care Start Date 01/02/22 Plan of Care End Date 03/17/22 Next Visit Focus/Plan Next Note Type Treatment Note Next Visit Plan Issue HEP: LE neural / hamstring stretch. Review as needed use of modalities for pain management (RICE). Add L>R hip AB/AD, MICHEL hip flex/ext/ER/IR strengthening. Educate pt in best sitting posture for driving. Special Tests check: Hip Log roll, f/b appropriate treatment and HEP Therapeutic Ex, and HEP: (hip IR rot stretch and general stretching, L Illiopsoas stretch, trunk flex when tolerated, core stab). EDUCATION: self STM for pain management. Manual therapy (correct R innominate sulfur chloride operator rot/L innominate anterior rot & sacral balancing as needed), MH/IFES for pain. POC: LBP/R sciatic pain rehab possibly neural disc in nature.
--- NOTE | 2022-01-17 12:34 | PT.OTN ---
Current Diagnoses Cervicalgia (01/17/22) Low back pain, unspecified (01/17/22) Muscle weakness (generalized) (01/17/22) Segmental and somatic dysfunction of sacral region (01/17/22) Physical Therapy Treatment Note PT-OP-A Visit Information Start: 12/26/21 18:44 Freq: Status: Active Protocol: Document 01/17/22 11:27 LRN (Rec: 01/17/22 12:27 LRN [id number]) Out-Patient Physical Therapy Visit Information Visit Information Visit Type Treatment Note Visit Start Time 11: Visit Stop Time 12:27 Total Visit Minutes 60 Visit Number 5 Evaluation Information Evaluation Date 01/02/22 Precautions Precautions Neck pain/migraines with activity. PT-OP-B Current Condition Start: 12/26/21 18:44 Freq: Status: Active Protocol: Document 01/02/22 14:33 LRN (Rec: 01/02/22 19:04 LRN [id number]) Current Condition History of Current Condition Onset Date 1 yr ago after starting new job. Current Complaints Low back pain at level of PSIS 's, R>L, constant pain. History of Current Condition Experiencing constant pain in lower back. 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 Most of the things that is done requires a two person lift, but most do not ask for help. He feels he is broken because not having help available. did an xray and was sent to PT. Hoping to have an MRI. Pt feels he has a herniated disc due to his job. His father's uncle who is an MD believes it is a herniated disc. Has limited duty given by attending doctor (30 days), therefore can ask for help during this timeframe, otherwise not able to get help without a limited duty status . Sometimes sits slouched or lays on stomach. The only thing that helps is IBP 600 mg . Given 30 days limited duty on Dec 13. Pt is R handed. Prior Treatments and Tests X-ray 2 weeks ago. 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 Future Testing and Treatments Planned Plan course of action if not improving: PT > Injection > MRI > surgery (which pt would not want to do). Treatment Goals Patient/Caregiver Goals Pt goal with therapy is to: eliminate constant pain, further testing to determine reason for pain. Prior Functional Status Baseline Function- ADL's Independent Baseline Function- Mobility Independent Baseline Function- Work/School No back pain, soreness after first starting current job. Baseline Function- Other Exercising 2x/week for 1/2 mile runs, push ups and sit ups, planks. Current Functional Impairments (Reported) Functional Limitations- ADL's LBP with bending down and lift objects (case of water) at home. Not able to lie prone due to radiating RLE pain. Functional Limitations- Work/School Not able to ex due to neck and LBP after ex. Personal Factors Other Personal Factors That May Effect Pt job requiring Therapy/Recovery lifting, pushing, pulling of heavy objects, up to 400#. PT-OP-C Subjective Start: 12/26/21 18:44 Freq: Status: Active Protocol: Document 01/17/22 11:27 LRN (Rec: 01/17/22 12:27 LRN [id number]) OP-PT Subjective Patient Comments Patient Comments MRI authorized, and will schedule it today. F/u visit a month from yesterday, 2nd week in Feb. C/o L neck pain (6-7/10) that comes/goes and constant R LBP, rated 6-7/10 PT-OP-H Neuro Start: 12/26/21 18:44 Freq: Status: Active Protocol: Document 01/02/22 14:33 LRN (Rec: 01/02/22 19:04 LRN [id number]) Sensation Evaluation Gross Sensation Gross Sensation WNL Deep Tendon Reflex & Clonus Assessment Deep Tendon Reflex Bilateral Achilles Deep Tendon Reflex 3+ Normal But Brisk Bilateral Patellar Deep Tendon Reflex 2+ Normal PT-OP-J Posture/Palpation/Skin Start: 12/26/21 18:44 Freq: Status: Active Protocol: Document 01/09/22 13:04 LRN (Rec: 01/09/22 17:09 LRN [id number]) Palpation Assessment Location Leg length Palpation Location Medial malleolus Palpation Details Supine: Slightly long on the R ; Long sit - equal (slight anterior rot of R innominate). PT-OP-K Range of Motion Start: 12/26/21 18:44 Freq: Status: Active Protocol: Document 01/12/22 13:01 LRN (Rec: 01/12/22 13:51 LRN [id number]) Cervical Spine Range of Motion Cervical Spine Active Degrees Testing Position Sitting Flexion 50 Extension 32 Rotation Left 50 Rotation Right 51 Lateral Flexion Left 22 Lateral Flexion Right 25 PT-OP-L Special Tests Start: 12/26/21 18:44 Freq: Status: Active Protocol: Document 01/09/22 13:04 LRN (Rec: 01/09/22 17:12 LRN [id number]) Special Tests Lumbar Spine Special Tests Luis Daniel Test Results - right, + left Comments Testing L - R LBP Slump Test Results + Comments LBP/R hip pain Manual Traction Test Results - Comments No change in back pain Vertical Spine Loading Test Results + Comments LBP Hip Special Tests Log Roll Test Test Results + Comments LBP/R hip pain with IR Scour Test Test Results + Comments LBP/R hip pain PT-OP-M Strength Start: 12/26/21 18:44 Freq: Status: Active Protocol: Document 01/12/22 13:01 LRN (Rec: 01/12/22 13:51 LRN [id number]) Hip Strength Hip Manual Muscle Testing Right Flexion (L2) 3 Fair Extension (S1) 3 Fair Abduction 5 Normal Adduction 5 Normal External Rotation 3 Fair Internal Rotation 3+ Fair+ Left Flexion (L2) 3+ Fair+ Extension (S1) 3 Fair Abduction 3 Fair Adduction 4 Good External Rotation 3+ Fair+ Internal Rotation 3+ Fair+ PT-OP-Q Treatments Start: 12/26/21 18:44 Freq: Status: Active Protocol: Document 01/17/22 11:27 LRN (Rec: 01/17/22 12:27 LRN [id number]) Therapeutic Exercises Supine Exercises Lateral Hip stretch Supine Exercise Name Lateral Hip stretch Side left Reps/Minutes 3' Comments Extra time to determine max tolerated position and stretch Piriformis stretch Supine Exercise Name Piriformis stretch Side left Reps/Minutes 6' Comments Extra time to determine max tolerated position and stretch Hip ER stretch Supine Exercise Name Hip ER stretch, f/b 10x active stretch Side left Reps/Minutes 5' Comments extra time for determining max tolerated position DKTC stretch Supine Exercise Name DKTC stretch Reps/Minutes 10SH x 6 LE neural/hamstring stretch Supine Exercise Name LE neural/hamstring Side bilateral Reps/Minutes 7' Sidelying Exercises TA/Clamshell Sidelying Exercise Name TA/Clamshell Side bilateral Sitting Exercises LE neural/hamstring stretch Sitting Exercise Name LE neural/hamstring stretch Side bilateral Reps/Minutes 7' Comments Tried with and w/o support to lower leg. Cuing for core/ trunk position. Manual Therapy Treatment Soft Tissue Mobilization L LEG Body Location L IT Band/Gluteal. Mobilization Type Instrument Assisted Self-Care/Home Management Treatment Education Patient Education Home Exercise Program Activities Self-Care/Home Management Activities Issued & reviewed HEP: LE neural/hamstring stretch in sit and supine. Supine: Hip stretches of Fig 4, Piriformis , Lateral Hip stretch. Strengthening: Clamshell/TA. PT-OP-R Modalities Start: 12/26/21 18:44 Freq: Status: Active Protocol: Document 01/17/22 11:27 LRN (Rec: 01/17/22 12:27 LRN [id number]) Electric Stimulation Electric Stimulation Interferential Current (IFC) Body Location [Sacrum] for R SIJ pain Duration (Minutes) 20 Intensity 10 Target/Sweep Sweep Patient Position Supine Combined With Heat/Cold Hot Pack PT-OP-T Assessment and Plan Start: 12/26/21 18:44 Freq: Status: Active Protocol: Document 01/17/22 11:27 LRN (Rec: 01/17/22 12:27 LRN [id number]) Physical Therapy Assessment Goals Four Impairment Decreased core/pelvic strength /stability Short Term Goal (STG) Improve core strength with pt able to maintain core stability with MMT of LE's. STG Duration 02/01/22 Labor/Excavator Goal (LTG) Improve core strength with pt able to return to his job with minimal onset of LBP and radiating LE pain. LTG Duration 03/17/22 Three Impairment Decreased trunk and hip mobility Short Term Goal (STG) Improve hip mobility with pt able to sit or drive without increase in LBP. STG Duration 02/01/22 [facility] Goal (LTG) Improve trunk mobility with pt able to tolerate prone lying and exercise without onset of LBP or radiating LE pain. LTG Duration 03/17/22 Two Impairment Constant LBP w/radiating pain down R LE, and post neck pain. Impairment LBP at PSIS level & R LE sharp shooting pain rated 4-6/10 and constant. Neck pain rated 5-7/10 with onset of migraine headaches. Short Term Goal (STG) Decrease LBP to intermittent and eliminate R LE radiating pain STG Duration 02/01/22 Labor/Excavator Goal (LTG) Eliminate LBP and neck pain with occasional mild onset of soreness with return to work. LTG Duration 03/17/22 One Impairment Lacks appropriate Short Term Goal (STG) STG: Pt will be educated in proper body mechanics for work , transfer and ADLs, and proper sitting and standing posture. 01/12/22: Pt re-educated in proper transfer sit<>supine. STG Duration 01/12/22 (01/05/22: MET GOAL) Labor/Excavator Goal (LTG) LTG: Pt will be independent and consistent with a self care HEP to manage his R LE pain with return to work. 01/12/22: Educated pt in proper posture, ADLs, use of ice for pain mgmt (LAURA). 01/17/22: HEP: LE neural/ hamstring stretch in sit and supine. Supine: Hip stretches of Fig 4, Piriformis , Lateral Hip stretch. Strengthening: Clamshell/TA. LTG Duration 03/17/22 progressed 01/12/22. Assessment Summary Assessment Pt familiar with LE neural stretch. S/P hip stretches pt c/o L thigh pain, possibly from stretches or DKTC stretch , mostly normalized with MH/ IFES. Pain decreased in LLB from 6/10 to 5/10 after IFES. Good tolerance to ex, pt has less core control with R sidelie clamshell ex due to pain in L IT Band and hip. Physical Therapy Plan Frequency and Duration Frequency of Treatment 2x/Week Plan of Care Start Date 01/02/22 Plan of Care End Date 03/17/22 Next Visit Focus/Plan Next Note Type Treatment Note Next Visit Plan Review issued HEP: hip stretches (piriformis, lateral hip, fig 4) & clamshell. Special Tests check: Hip Log roll, f/b appropriate treatment and HEP. Add strengthening: L>R hip AB/ AD, MICHEL hip flex/ext/ER/IR, and manual therapy for STM of back/L hip/R neck. Educate pt in best sitting posture for driving. Therapeutic Ex, and HEP: ( general stretching, L Illiopsoas stretch, trunk flex when tolerated, core stab). EDUCATION: self STM for pain management. Manual therapy: Monitor SIJ ( correct R innominate manager market development rot/L innominate anterior rot & sacral balancing as needed), Modalities: MH/IFES for pain. POC: LBP/R sciatic pain rehab possibly neural disc in nature.
--- NOTE | 2022-01-19 14:52 | PT.OTN ---
Current Diagnoses Cervicalgia (01/19/22) Low back pain, unspecified (01/19/22) Muscle weakness (generalized) (01/19/22) Segmental and somatic dysfunction of sacral region (01/19/22) Physical Therapy Treatment Note PT-OP-A Visit Information Start: 12/26/21 18:44 Freq: Status: Active Protocol: Document 01/19/22 13:53 LRN (Rec: 01/19/22 14:51 LRN [id number]) Out-Patient Physical Therapy Visit Information Visit Information Visit Type Treatment Note Visit Start Time 13:53 Visit Stop Time 14:46 Total Visit Minutes 53 Visit Number 6 Evaluation Information Evaluation Date 01/02/22 Precautions Precautions Neck pain/migraines with activity. PT-OP-B Current Condition Start: 12/26/21 18:44 Freq: Status: Active Protocol: Document 01/02/22 14:33 LRN (Rec: 01/02/22 19:04 LRN [id number]) Current Condition History of Current Condition Onset Date 1 yr ago after starting new job. Current Complaints Low back pain at level of PSIS 's, R>L, constant pain. History of Current Condition Experiencing constant pain in lower back. 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 Most of the things that is done requires a two person lift, but most do not ask for help. He feels he is broken because not having help available. did an xray and was sent to PT. Hoping to have an MRI. Pt feels he has a herniated disc due to his job. His father's uncle who is an MD believes it is a herniated disc. Has limited duty given by attending doctor (30 days), therefore can ask for help during this timeframe, otherwise not able to get help without a limited duty status . Sometimes sits slouched or lays on stomach. The only thing that helps is IBP 600 mg . Given 30 days limited duty on Dec 13. Pt is R handed. Prior Treatments and Tests X-ray 2 weeks ago. 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 Future Testing and Treatments Planned Plan course of action if not improving: PT > Injection > MRI > surgery (which pt would not want to do). Treatment Goals Patient/Caregiver Goals Pt goal with therapy is to: eliminate constant pain, further testing to determine reason for pain. Prior Functional Status Baseline Function- ADL's Independent Baseline Function- Mobility Independent Baseline Function- Work/School No back pain, soreness after first starting current job. Baseline Function- Other Exercising 2x/week for 1/2 mile runs, push ups and sit ups, planks. Current Functional Impairments (Reported) Functional Limitations- ADL's LBP with bending down and lift objects (case of water) at home. Not able to lie prone due to radiating RLE pain. Functional Limitations- Work/School Not able to ex due to neck and LBP after ex. Personal Factors Other Personal Factors That May Effect Pt job requiring Therapy/Recovery lifting, pushing, pulling of heavy objects, up to 400#. PT-OP-C Subjective Start: 12/26/21 18:44 Freq: Status: Active Protocol: Document 01/19/22 13:53 LRN (Rec: 01/19/22 14:51 LRN [id number]) OP-PT Subjective Patient Comments Patient Comments MRI of the LB is scheduled this coming sunday (4 days). Yesterday inner R thigh was tight. Yesterday had 7-8/10 in posterior thigh, today 0/10 , in the LBP is 5-6/10. Pain after ES: Back 4-5/10, neck 6 -7/10. PT-OP-H Neuro Start: 12/26/21 18:44 Freq: Status: Active Protocol: Document 01/02/22 14:33 LRN (Rec: 01/02/22 19:04 LRN [id number]) Sensation Evaluation Gross Sensation Gross Sensation WNL Deep Tendon Reflex & Clonus Assessment Deep Tendon Reflex Bilateral Achilles Deep Tendon Reflex 3+ Normal But Brisk Bilateral Patellar Deep Tendon Reflex 2+ Normal PT-OP-J Posture/Palpation/Skin Start: 12/26/21 18:44 Freq: Status: Active Protocol: Document 01/09/22 13:04 LRN (Rec: 01/09/22 17:09 LRN [id number]) Palpation Assessment Location Leg length Palpation Location Medial malleolus Palpation Details Supine: Slightly long on the R ; Long sit - equal (slight anterior rot of R innominate). PT-OP-K Range of Motion Start: 12/26/21 18:44 Freq: Status: Active Protocol: Document 01/12/22 13:01 LRN (Rec: 01/12/22 13:51 LRN [id number]) Cervical Spine Range of Motion Cervical Spine Active Degrees Testing Position Sitting Flexion 50 Extension 32 Rotation Left 50 Rotation Right 51 Lateral Flexion Left 22 Lateral Flexion Right 25 PT-OP-L Special Tests Start: 12/26/21 18:44 Freq: Status: Active Protocol: Document 01/09/22 13:04 LRN (Rec: 01/09/22 17:12 LRN [id number]) Special Tests Lumbar Spine Special Tests Luis Daniel Test Results - right, + left Comments Testing L - R LBP Slump Test Results + Comments LBP/R hip pain Manual Traction Test Results - Comments No change in back pain Vertical Spine Loading Test Results + Comments LBP Hip Special Tests Log Roll Test Test Results + Comments LBP/R hip pain with IR Scour Test Test Results + Comments LBP/R hip pain PT-OP-M Strength Start: 12/26/21 18:44 Freq: Status: Active Protocol: Document 01/12/22 13:01 LRN (Rec: 01/12/22 13:51 LRN [id number]) Hip Strength Hip Manual Muscle Testing Right Flexion (L2) 3 Fair Extension (S1) 3 Fair Abduction 5 Normal Adduction 5 Normal External Rotation 3 Fair Internal Rotation 3+ Fair+ Left Flexion (L2) 3+ Fair+ Extension (S1) 3 Fair Abduction 3 Fair Adduction 4 Good External Rotation 3+ Fair+ Internal Rotation 3+ Fair+ PT-OP-Q Treatments Start: 12/26/21 18:44 Freq: Status: Active Protocol: Document 01/19/22 13:53 LRN (Rec: 01/19/22 14:51 LRN [id number]) Therapeutic Exercises Supine Exercises Lateral Hip stretch Supine Exercise Name Lateral Hip stretch Side bilateral Reps/Minutes 5' Comments Extra time to determine max tolerated position and stretch on R side Piriformis stretch Supine Exercise Name Piriformis stretch Side left Reps/Minutes 6' Comments Extra time to determine max tolerated position and stretch Hip ER stretch Supine Exercise Name Fig 4 stretch Side left Reps/Minutes 5' Comments extra time for determining max tolerated position LE neural/hamstring stretch Supine Exercise Name LE neural/hamstring Side bilateral Reps/Minutes 7' Manual Therapy Treatment Soft Tissue Mobilization Self massage w/tennis ball Body Location Bilateral TFL & IT Band self massage w/tennis ball Mobilization Type Instrument Assisted Intensity/Depth Moderate Body Position Standing L LEG Body Location Bilateral IT Band/Gluteal. Mobilization Type Instrument Assisted Intensity/Depth Moderate Body Position Sidelying Comments Tenderness bilaterally to start. Manual Traction Lumbar Details Lumbar Traction Body Position Supine Reps/Duration 5' Comments Tried with therapist semi- standing for traction. Pt had onset of R lateral/ posterior thigh pain. PT-OP-R Modalities Start: 12/26/21 18:44 Freq: Status: Active Protocol: Document 01/19/22 13:53 LRN (Rec: 01/19/22 14:51 LRN [id number]) Electric Stimulation Electric Stimulation Interferential Current (IFC) Body Location [Sacrum] for R SIJ pain Duration (Minutes) 20 Intensity 12 Target/Sweep Sweep Patient Position Supine Combined With Heat/Cold Hot Pack Comments LBP decreased from 5-6/10 to 4 -5/10. Neck pain 6-7/10. PT-OP-T Assessment and Plan Start: 12/26/21 18:44 Freq: Status: Active Protocol: Document 01/19/22 13:53 LRN (Rec: 01/19/22 14:51 LRN [id number]) Physical Therapy Assessment Goals Four Impairment Decreased core/pelvic strength /stability Short Term Goal (STG) Improve core strength with pt able to maintain core stability with MMT of LE's. STG Duration 02/01/22 Mill Feeder Goal (LTG) Improve core strength with pt able to return to his job with minimal onset of LBP and radiating LE pain. LTG Duration 03/17/22 Three Impairment Decreased trunk and hip mobility Short Term Goal (STG) Improve hip mobility with pt able to sit or drive without increase in LBP. STG Duration 02/01/22 [facility] Goal (LTG) Improve trunk mobility with pt able to tolerate prone lying and exercise without onset of LBP or radiating LE pain. LTG Duration 03/17/22 Two Impairment Constant LBP w/radiating pain down R LE, and post neck pain. Impairment LBP at PSIS level & R LE sharp shooting pain rated 4-6/10 and constant. Neck pain rated 5-7/10 with onset of migraine headaches. Short Term Goal (STG) Decrease LBP to intermittent and eliminate R LE radiating pain STG Duration 02/01/22 [facility]fp Goal (LTG) Eliminate LBP and neck pain with occasional mild onset of soreness with return to work. LTG Duration 03/17/22 One Impairment Lacks appropriate Short Term Goal (STG) STG: Pt will be educated in proper body mechanics for work , transfer and ADLs, and proper sitting and standing posture. 01/12/22: Pt re-educated in proper transfer sit<>supine. STG Duration 01/12/22 (01/05/22: MET GOAL) Mill Feeder Goal (LTG) LTG: Pt will be independent and consistent with a self care HEP to manage his R LE pain with return to work. 01/12/22: Educated pt in proper posture, ADLs, use of ice for pain mgmt (RICE). 01/17/22: HEP: LE neural/ hamstring stretch in sit and supine. Supine: Hip stretches of Fig 4, Piriformis , Lateral Hip stretch. Strengthening: Clamshell/TA. LTG Duration 03/17/22 progressed 01/12/22. Assessment Summary Assessment Pt was familiar with hip stretches with review. He is not quite independent with stretches. L Lateral hip and Piriformis appears equally tight on both sides; therefore will continue the stretch bilaterally. Fig 4 stretch is tighter on the L side, with R side trunk rotating R during stretch causing LBP unless pelvis stabilized. Pt was tender in bilateral IT bands and TFL today. Physical Therapy Plan Frequency and Duration Frequency of Treatment 2x/Week Plan of Care Start Date 01/02/22 Plan of Care End Date 03/17/22 Next Visit Focus/Plan Next Note Type Treatment Note Next Visit Plan Check results of MRI on . Review again hip stretches (piriformis, lateral hip, L fig 4) & clamshell for good recall. Review pt knowledge/response of self STM for pain management (use of tennis ball ). Check Special Tests: Hip Log roll, f/b appropriate treatment and HEP. Add strengthening: L>R hip AB/ AD, MICHEL hip flex/ext/ER/IR, and manual therapy for STM of back/L hip/R neck. Educate pt in best sitting posture for driving. Therapeutic Ex, and HEP: ( general stretching, L Illiopsoas stretch, trunk flex when tolerated, core stab). Manual therapy: Monitor SIJ ( correct R innominate [employer] rot/L innominate anterior rot & sacral balancing as needed), Modalities: MH/IFES for pain. POC: LBP/R sciatic pain rehab possibly neural disc in nature.
--- NOTE | 2022-02-24 14:25 | PT.OTN ---
Current Diagnoses Cervicalgia (02/24/22) Low back pain, unspecified (02/24/22) Muscle weakness (generalized) (02/24/22) Segmental and somatic dysfunction of sacral region (02/24/22) Physical Therapy Treatment Note PT-OP-A Visit Information Start: 12/26/21 18:44 Freq: Status: Active Protocol: Document 02/24/22 13:05 LRN (Rec: 02/24/22 14:24 LRN [id number]) Out-Patient Physical Therapy Visit Information Visit Information Visit Type Treatment Note Visit Start Time 13:05 Visit Stop Time 13:55 Total Visit Minutes 50 Visit Number 08/17 Evaluation Information Evaluation Date 01/02/22 Precautions Precautions Neck pain/migraines with activity. 02/24/22: Pt reports MRI results of back - herniated discs. PT-OP-B Current Condition Start: 12/26/21 18:44 Freq: Status: Active Protocol: Document 01/02/22 14:33 LRN (Rec: 01/02/22 19:04 LRN [id number]) Current Condition History of Current Condition Onset Date 1 yr ago after starting new job. Current Complaints Low back pain at level of PSIS 's, R>L, constant pain. History of Current Condition Experiencing constant pain in lower back. 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 Most of the things that is done requires a two person lift, but most do not ask for help. He feels he is broken because not having help available. did an xray and was sent to PT. Hoping to have an MRI. Pt feels he has a herniated disc due to his job. His father's uncle who is an MD believes it is a herniated disc. Has limited duty given by attending doctor (30 days), therefore can ask for help during this timeframe, otherwise not able to get help without a limited duty status . Sometimes sits slouched or lays on stomach. The only thing that helps is IBP 600 mg . Given 30 days limited duty on Dec 13. Pt is R handed. Prior Treatments and Tests X-ray 2 weeks ago. 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 Future Testing and Treatments Planned Plan course of action if not improving: PT > Injection > MRI > surgery (which pt would not want to do). Treatment Goals Patient/Caregiver Goals Pt goal with therapy is to: eliminate constant pain, further testing to determine reason for pain. Prior Functional Status Baseline Function- ADL's Independent Baseline Function- Mobility Independent Baseline Function- Work/School No back pain, soreness after first starting current job. Baseline Function- Other Exercising 2x/week for 1/2 mile runs, push ups and sit ups, planks. Current Functional Impairments (Reported) Functional Limitations- ADL's LBP with bending down and lift objects (case of water) at home. Not able to lie prone due to radiating RLE pain. Functional Limitations- Work/School Not able to ex due to neck and LBP after ex. Personal Factors Other Personal Factors That May Effect Pt job requiring Therapy/Recovery lifting, pushing, pulling of heavy objects, up to 400#. PT-OP-C Subjective Start: 12/26/21 18:44 Freq: Status: Active Protocol: Document 02/24/22 13:05 LRN (Rec: 02/24/22 14:24 LRN [id number]) OP-PT Subjective Patient Comments Patient Comments States he has a herniated disc . He has been referred to [facility]opedic physician, on the 02/28/22. PT-OP-H Neuro Start: 12/26/21 18:44 Freq: Status: Active Protocol: Document 01/02/22 14:33 LRN (Rec: 01/02/22 19:04 LRN [id number]) Sensation Evaluation Gross Sensation Gross Sensation WNL Deep Tendon Reflex & Clonus Assessment Deep Tendon Reflex Bilateral Achilles Deep Tendon Reflex 3+ Normal But Brisk Bilateral Patellar Deep Tendon Reflex 2+ Normal PT-OP-J Posture/Palpation/Skin Start: 12/26/21 18:44 Freq: Status: Active Protocol: Document 01/09/22 13:04 LRN (Rec: 01/09/22 17:09 LRN [id number]) Palpation Assessment Location Leg length Palpation Location Medial malleolus Palpation Details Supine: Slightly long on the R ; Long sit - equal (slight anterior rot of R innominate). PT-OP-K Range of Motion Start: 12/26/21 18:44 Freq: Status: Active Protocol: Document 01/12/22 13:01 LRN (Rec: 01/12/22 13:51 LRN [id number]) Cervical Spine Range of Motion Cervical Spine Active Degrees Testing Position Sitting Flexion 50 Extension 32 Rotation Left 50 Rotation Right 51 Lateral Flexion Left 22 Lateral Flexion Right 25 PT-OP-L Special Tests Start: 12/26/21 18:44 Freq: Status: Active Protocol: Document 01/09/22 13:04 LRN (Rec: 01/09/22 17:12 LRN [id number]) Special Tests Lumbar Spine Special Tests Luis Daniel Test Results - right, + left Comments Testing L - R LBP Slump Test Results + Comments LBP/R hip pain Manual Traction Test Results - Comments No change in back pain Vertical Spine Loading Test Results + Comments LBP Hip Special Tests Log Roll Test Test Results + Comments LBP/R hip pain with IR Scour Test Test Results + Comments LBP/R hip pain PT-OP-M Strength Start: 12/26/21 18:44 Freq: Status: Active Protocol: Document 01/12/22 13:01 LRN (Rec: 01/12/22 13:51 LR [id number]) Hip Strength Hip Manual Muscle Testing Right Flexion (L2) 3 Fair Extension (S1) 3 Fair Abduction 5 Normal Adduction 5 Normal External Rotation 3 Fair Internal Rotation 3+ Fair+ Left Flexion (L2) 3+ Fair+ Extension (S1) 3 Fair Abduction 3 Fair Adduction 4 Good External Rotation 3+ Fair+ Internal Rotation 3+ Fair+ PT-OP-Q Treatments Start: 12/26/21 18:44 Freq: Status: Active Protocol: Document 02/24/22 13:05 LRN (Rec: 02/24/22 14:24 LRN [id number]) Cardio Equipment Upper Body Ergometer (UBE) Duration (Minutes) 5 RPM 65 Seat Position 12 Height 3 Bicycle (Upright) Duration (Minutes) 5 Resistance 12-15 Seat Position 8 Other HR: 60 bpm (70%) <> 148 bpm ( 80%) Gym Equipment Cable Column (Body Solid) Standing shldr flex>ext Details Arms straight for max flex to ext Resistance 20# Reps/Time 15x 3, varing position away from machine and posture Lat Pull Down Details Multiple adjustments to sitting position & posture for ab ex Resistance 20# Reps/Time 10x 6 (knees together, knees apart, hips flexed, hips minimally flexed Therapeutic Exercises Prone Exercises LISET Prone Exercise Name LISET Reps/Minutes 15x, 5x Standing Exercises Squat training Standing Exercise Name Squat training with Lg Gr TBall Equipment Used Lg Gr TBall against wall Reps/Minutes 8' Shallow squat Standing Exercise Name Shallow squat with & w/o resistance Resistance 7# handwgts x 2 Reps/Minutes 10x 3 Comments Much discussion & educ on wgt placement. Self-Care/Home Management Treatment Education Other Education Discussed pt report of having herniated discs and course of PT rehab and POC. Pt education in gym ex's that pt would like to do. Recommended no wgt resistance on knees in child pose like position for tricep press, sit ups, and at this time planks. Discussed pull ups and varying hand positions. PT-OP-R Modalities Start: 12/26/21 18:44 Freq: Status: Active Protocol: Document 01/19/22 13:53 LRN (Rec: 01/19/22 14:51 LRN [id number]) Electric Stimulation Electric Stimulation Interferential Current (IFC) Body Location [Sacrum] for R SIJ pain Duration (Minutes) 20 Intensity 12 Target/Sweep Sweep Patient Position Supine Combined With Heat/Cold Hot Pack Comments LBP decreased from 5-6/10 to 4 -5/10. Neck pain 6-7/10. PT-OP-T Assessment and Plan Start: 12/26/21 18:44 Freq: Status: Active Protocol: Document 02/24/22 13:05 LRN (Rec: 02/24/22 14:24 LRN [id number]) Physical Therapy Assessment Goals Four Impairment Decreased core/pelvic strength /stability Short Term Goal (STG) Improve core strength with pt able to maintain core stability with MMT of LE's. STG Duration 02/01/22 Fpc Goal (LTG) Improve core strength with pt able to return to his job with minimal onset of LBP and radiating LE pain. 02/24/22: Progressing strengthening w/pt reported dx of herniated discs. LTG Duration 03/17/22 progressing 02/24 Three Impairment Decreased trunk and hip mobility Short Term Goal (STG) Improve hip mobility with pt able to sit or drive without increase in LBP. STG Duration 02/01/22 Fpc Goal (LTG) Improve trunk mobility with pt able to tolerate prone lying and exercise without onset of LBP or radiating LE pain. LTG Duration 03/17/22 Two Impairment Constant LBP w/radiating pain down R LE, and post neck pain. Impairment LBP at PSIS level & R LE sharp shooting pain rated 4-6/10 and constant. Neck pain rated 5-7/10 with onset of migraine headaches. Short Term Goal (STG) Decrease LBP to intermittent and eliminate R LE radiating pain STG Duration 02/01/22 Vacuum Pan Operator Goal (LTG) Eliminate LBP and neck pain with occasional mild onset of soreness with return to work. LTG Duration 03/17/22 One Impairment Lacks appropriate Short Term Goal (STG) STG: Pt will be educated in proper body mechanics for work , transfer and ADLs, and proper sitting and standing posture. 01/12/22: Pt re-educated in proper transfer sit<>supine. STG Duration 01/12/22 (01/05/22: MET GOAL) Vacuum Pan Operator Goal (LTG) LTG: Pt will be independent and consistent with a self care HEP to manage his R LE pain with return to work. 01/12/22: Educated pt in proper posture, ADLs, use of ice for pain mgmt (RICE). 01/17/22: HEP: LE neural/ hamstring stretch in sit and supine. Supine: Hip stretches of Fig 4, Piriformis , Lateral Hip stretch. Strengthening: Clamshell/TA. 02/24/22: Pt cleared to start aerobic ex (bike, UBE) and squat ex with handwgts, lat pull down in gym. LTG Duration 03/17/22 progressed 02/24/22. Assessment Summary Assessment Pt attends informing that MRI results indicate he has herniated discs and will be seeing orthopedist 02/28/22; therefore check for hip internal derangement is not necessary. Pt able to perform LISET without pain and tolerated all ex's without c/o pain. Pt tends to hold pelvis in anterior tilt and has trouble maintaining core stability when exercising heavily to increase HR for aerobic exercise. Body mechanics for lifting need further reinforcing of proper positioning and movement. Pt hoping to attend therapy closer to home in [place] and will check into switching therapy if possible. Physical Therapy Plan Frequency and Duration Frequency of Treatment 2x/Week Plan of Care Start Date 01/02/22 Plan of Care End Date 03/17/22 Next Visit Focus/Plan Next Note Type Treatment Note Next Visit Plan POC: LBP/R sciatic pain rehab due to herniated discs. Assess progress towards goals. Review again hip stretches ( piriformis, lateral hip, L fig 4) & clamshell for good recall and for self STM for pain management (use of tennis ball). Educate pt in best sitting posture for driving. Add strengthening: Core stab, L>R hip AB/AD, MICHEL hip flex/ ext/ER/IR. Ex/HEP: (general stretching, L Illiopsoas stretch, functional trunk flex mobility). Manual therapy: Monitor SIJ ( correct R innominate staff rn rot/L innominate anterior rot & sacral balancing as needed), STM of back/L hip/R neck when needed. Modalities: MH/IFES for pain.
--- NOTE | 2022-02-27 11:11 | PT.OTN ---
Current Diagnoses Cervicalgia (02/27/22) Low back pain, unspecified (02/27/22) Muscle weakness (generalized) (02/27/22) Segmental and somatic dysfunction of sacral region (02/27/22) Physical Therapy Treatment Note PT-OP-A Visit Information Start: 12/26/21 18:44 Freq: Status: Active Protocol: Document 02/27/22 09:06 LRN (Rec: 02/27/22 09:48 LRN [id number]) Out-Patient Physical Therapy Visit Information Visit Information Visit Type Treatment Note Visit Start Time 09:06 Visit Stop Time 09:42 Total Visit Minutes 38 Visit Number 09/17 Evaluation Information Evaluation Date 01/02/22 Precautions Precautions Neck pain/migraines with activity. 02/24/22: Pt reports MRI results of back - herniated discs. PT-OP-B Current Condition Start: 12/26/21 18:44 Freq: Status: Active Protocol: Document 01/02/22 14:33 LRN (Rec: 01/02/22 19:04 LRN [id number]) Current Condition History of Current Condition Onset Date 1 yr ago after starting new job. Current Complaints Low back pain at level of PSIS 's, R>L, constant pain. History of Current Condition Experiencing constant pain in lower back. 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 Most of the things that is done requires a two person lift, but most do not ask for help. He feels he is broken because not having help available. did an xray and was sent to PT. Hoping to have an MRI. Pt feels he has a herniated disc due to his job. His father's uncle who is an MD believes it is a herniated disc. Has limited duty given by attending doctor (30 days), therefore can ask for help during this timeframe, otherwise not able to get help without a limited duty status . Sometimes sits slouched or lays on stomach. The only thing that helps is IBP 600 mg . Given 30 days limited duty on Dec 13. Pt is R handed. Prior Treatments and Tests X-ray 2 weeks ago. 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 Future Testing and Treatments Planned Plan course of action if not improving: PT > Injection > MRI > surgery (which pt would not want to do). Treatment Goals Patient/Caregiver Goals Pt goal with therapy is to: eliminate constant pain, further testing to determine reason for pain. Prior Functional Status Baseline Function- ADL's Independent Baseline Function- Mobility Independent Baseline Function- Work/School No back pain, soreness after first starting current job. Baseline Function- Other Exercising 2x/week for 1/2 mile runs, push ups and sit ups, planks. Current Functional Impairments (Reported) Functional Limitations- ADL's LBP with bending down and lift objects (case of water) at home. Not able to lie prone due to radiating RLE pain. Functional Limitations- Work/School Not able to ex due to neck and LBP after ex. Personal Factors Other Personal Factors That May Effect Pt job requiring Therapy/Recovery lifting, pushing, pulling of heavy objects, up to 400#. PT-OP-C Subjective Start: 12/26/21 18:44 Freq: Status: Active Protocol: Document 02/27/22 09:06 LRN (Rec: 02/27/22 09:48 LRN [id number]) OP-PT Subjective Patient Comments Patient Comments States his pain is 6-7/10. Pt states with all ex last session his pain did not increase. Reports he has neck pain since yesterday AM. PT-OP-H Neuro Start: 12/26/21 18:44 Freq: Status: Active Protocol: Document 01/02/22 14:33 LRN (Rec: 01/02/22 19:04 LRN [id number]) Sensation Evaluation Gross Sensation Gross Sensation WNL Deep Tendon Reflex & Clonus Assessment Deep Tendon Reflex Bilateral Achilles Deep Tendon Reflex 3+ Normal But Brisk Bilateral Patellar Deep Tendon Reflex 2+ Normal PT-OP-J Posture/Palpation/Skin Start: 12/26/21 18:44 Freq: Status: Active Protocol: Document 01/09/22 13:04 LRN (Rec: 01/09/22 17:09 LRN [id number]) Palpation Assessment Location Leg length Palpation Location Medial malleolus Palpation Details Supine: Slightly long on the R ; Long sit - equal (slight anterior rot of R innominate). PT-OP-K Range of Motion Start: 12/26/21 18:44 Freq: Status: Active Protocol: Document 01/12/22 13:01 LRN (Rec: 01/12/22 13:51 LRN [id number]) Cervical Spine Range of Motion Cervical Spine Active Degrees Testing Position Sitting Flexion 50 Extension 32 Rotation Left 50 Rotation Right 51 Lateral Flexion Left 22 Lateral Flexion Right 25 PT-OP-L Special Tests Start: 12/26/21 18:44 Freq: Status: Active Protocol: Document 01/09/22 13:04 LRN (Rec: 01/09/22 17:12 LRN [id number]) Special Tests Lumbar Spine Special Tests Luis Daniel Test Results - right, + left Comments Testing L - R LBP Slump Test Results + Comments LBP/R hip pain Manual Traction Test Results - Comments No change in back pain Vertical Spine Loading Test Results + Comments LBP Hip Special Tests Log Roll Test Test Results + Comments LBP/R hip pain with IR Scour Test Test Results + Comments LBP/R hip pain PT-OP-M Strength Start: 12/26/21 18:44 Freq: Status: Active Protocol: Document 01/12/22 13:01 LRN (Rec: 01/12/22 13:51 LRN [id number]) Hip Strength Hip Manual Muscle Testing Right Flexion (L2) 3 Fair Extension (S1) 3 Fair Abduction 5 Normal Adduction 5 Normal External Rotation 3 Fair Internal Rotation 3+ Fair+ Left Flexion (L2) 3+ Fair+ Extension (S1) 3 Fair Abduction 3 Fair Adduction 4 Good External Rotation 3+ Fair+ Internal Rotation 3+ Fair+ PT-OP-Q Treatments Start: 12/26/21 18:44 Freq: Status: Active Protocol: Document 02/27/22 09:06 LRN (Rec: 02/27/22 09:48 LRN [id number]) Cardio Equipment Bicycle (Upright) Duration (Minutes) 8 Resistance 12-15 Seat Position 9 Other HR: 111 bpm (70%) <> 148 bpm (80%) Gym Equipment Cable Column (Body Solid) Lat Pull Down Details Multiple adjustments to sitting position & posture for ab ex Resistance 20# Reps/Time 10x 2 (knees together, knees apart, hips min flexed/knees rest on seat Therapeutic Exercises Sitting Exercises Active C. SB Sitting Exercise Name Initiated stretch, but limited after several movements to L side for symmet Side bilateral Reps/Minutes 2x Neck Ext Sitting Exercise Name Active Neck Ext Reps/Minutes 10x Shoulder rolls Sitting Exercise Name Bkwd shoulder rolls Side bilateral Equipment Used Mirror for visual feedback Reps/Minutes 10' C. rot Sitting Exercise Name Activ C. rot stretch Side left Reps/Minutes 10SH x 6 Standing Exercises Lateral trunk/TFL Standing Exercise Name Quick Review of standing posture for stretch Reps/Minutes x1 Iliopsoas stretch Standing Exercise Name Runners stretch Side bilateral Reps/Minutes 60 x 1 Comments Extra time to obtain correct positioning for stretch Self-Care/Home Management Treatment Education Patient Education Pain Management,Posture Other Education Discussed and educated pt in best possible practice for proper sleep position, with handout issued. PT-OP-R Modalities Start: 12/26/21 18:44 Freq: Status: Active Protocol: Document 01/19/22 13:53 LRN (Rec: 01/19/22 14:51 LRN [id number]) Electric Stimulation Electric Stimulation Interferential Current (IFC) Body Location [Sacrum] for R SIJ pain Duration (Minutes) 20 Intensity 12 Target/Sweep Sweep Patient Position Supine Combined With Heat/Cold Hot Pack Comments LBP decreased from 5-6/10 to 4 -5/10. Neck pain 6-7/10. PT-OP-T Assessment and Plan Start: 12/26/21 18:44 Freq: Status: Active Protocol: Document 02/27/22 09:06 LRN (Rec: 02/27/22 09:48 LRN [id number]) Physical Therapy Assessment Goals Four Impairment Decreased core/pelvic strength /stability Short Term Goal (STG) Improve core strength with pt able to maintain core stability with MMT of LE's. STG Duration 02/01/22 Mcfp Goal (LTG) Improve core strength with pt able to return to his job with minimal onset of LBP and radiating LE pain. 02/24/22: Progressing strengthening w/pt reported dx of herniated discs. LTG Duration 03/17/22 progressing 02/24 Three Impairment Decreased trunk and hip mobility Short Term Goal (STG) Improve hip mobility with pt able to sit or drive without increase in LBP. STG Duration 02/01/22 Machine Room Engineer Goal (LTG) Improve trunk mobility with pt able to tolerate prone lying and exercise without onset of LBP or radiating LE pain. LTG Duration 03/17/22 Two Impairment Constant LBP w/radiating pain down R LE, and post neck pain. Impairment LBP at PSIS level & R LE sharp shooting pain rated 4-6/10 and constant. Neck pain rated 5-7/10 with onset of migraine headaches. Short Term Goal (STG) Decrease LBP to intermittent and eliminate R LE radiating pain STG Duration 02/01/22 Machine Room Engineer Goal (LTG) Eliminate LBP and neck pain with occasional mild onset of soreness with return to work. LTG Duration 03/17/22 One Impairment Lacks appropriate Short Term Goal (STG) STG: Pt will be educated in proper body mechanics for work , transfer and ADLs, and proper sitting and standing posture. 01/12/22: Pt re-educated in proper transfer sit<>supine. STG Duration 01/12/22 (01/05/22: MET GOAL) Mcfp Goal (LTG) LTG: Pt will be independent and consistent with a self care HEP to manage his R LE pain with return to work. 01/12/22: Educated pt in proper posture, ADLs, use of ice for pain mgmt (RICE). 01/17/22: HEP: LE neural/ hamstring stretch in sit and supine. Supine: Hip stretches of Fig 4, Piriformis , Lateral Hip stretch. Strengthening: Clamshell/TA. 02/24/22: Pt cleared to start aerobic ex (bike, UBE) and squat ex with handwgts, lat pull down in gym. 02/27/22: Education in proper resting/sidelye sleep position . LTG Duration 03/17/22 progressed 02/27/22. Progress Towards Goals Progress Comments Self care education progressed . Assessment Summary Assessment Pt has somewhat ex limiting neck pain from improper positioning at nighttime. Pt pain on L side that appears to have been overstretched in R SB & L rot (sleeping on stomach). Pt able to perform Lat pull down after position training to do with abdominal ex and no LBP. Pt appears to be straining shoulders during base workout; therefore review and training for proper posturing with base workout is needed. Physical Therapy Plan Frequency and Duration Frequency of Treatment 2x/Week Plan of Care Start Date 01/02/22 Plan of Care End Date 03/17/22 Next Visit Focus/Plan Next Note Type Treatment Note Next Visit Plan POC: Check progress towards goals. New POC needed before 03/17/22, discuss possible transfer of care dates. LBP/R sciatic pain rehab due to herniated discs. Assess progress towards goals. Review again hip stretches ( piriformis, lateral hip, L fig 4) & clamshell for good recall and for self STM for pain management (use of tennis ball). Educate pt in best sitting posture for driving. Review base workout ex's to prevent onset of back pain with exercises. Add strengthening: Core stab, L>R hip AB/AD, MICHEL hip flex/ ext/ER/IR. Ex/HEP: (general stretching, L Illiopsoas stretch, functional trunk flex mobility). Manual therapy: Monitor SIJ ( correct R innominate leadership program internship rot/L innominate anterior rot & sacral balancing as needed), STM of back/L hip/R neck when needed. Modalities: MH/IFES for pain.
--- NOTE | 2022-03-03 17:13 | PT.OTN ---
Current Diagnoses Cervicalgia (03/03/22) Low back pain, unspecified (03/03/22) Muscle weakness (generalized) (03/03/22) Segmental and somatic dysfunction of sacral region (03/03/22) Physical Therapy Treatment Note PT-OP-A Visit Information Start: 12/26/21 18:44 Freq: Status: Active Protocol: Document 03/03/22 08:20 LRN (Rec: 03/03/22 09:04 LRN [id number]) Out-Patient Physical Therapy Visit Information Visit Information Visit Type Treatment Note Visit Start Time 08:20 Visit Stop Time 09:03 Total Visit Minutes 43 Visit Number 10/18 Evaluation Information Evaluation Date 01/02/22 Precautions Precautions Neck pain/migraines with activity. 02/24/22: Pt reports MRI results of back - herniated discs. PT-OP-B Current Condition Start: 12/26/21 18:44 Freq: Status: Active Protocol: Document 01/02/22 14:33 LRN (Rec: 01/02/22 19:04 LRN [id number]) Current Condition History of Current Condition Onset Date 1 yr ago after starting new job. Current Complaints Low back pain at level of PSIS 's, R>L, constant pain. History of Current Condition Experiencing constant pain in lower back. 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 Most of the things that is done requires a two person lift, but most do not ask for help. He feels he is broken because not having help available. did an xray and was sent to PT. Hoping to have an MRI. Pt feels he has a herniated disc due to his job. His father's uncle who is an MD believes it is a herniated disc. Has limited duty given by attending doctor (30 days), therefore can ask for help during this timeframe, otherwise not able to get help without a limited duty status . Sometimes sits slouched or lays on stomach. The only thing that helps is IBP 600 mg . Given 30 days limited duty on Dec 13. Pt is R handed. Prior Treatments and Tests X-ray 2 weeks ago. 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 Future Testing and Treatments Planned Plan course of action if not improving: PT > Injection > MRI > surgery (which pt would not want to do). Treatment Goals Patient/Caregiver Goals Pt goal with therapy is to: eliminate constant pain, further testing to determine reason for pain. Prior Functional Status Baseline Function- ADL's Independent Baseline Function- Mobility Independent Baseline Function- Work/School No back pain, soreness after first starting current job. Baseline Function- Other Exercising 2x/week for 1/2 mile runs, push ups and sit ups, planks. Current Functional Impairments (Reported) Functional Limitations- ADL's LBP with bending down and lift objects (case of water) at home. Not able to lie prone due to radiating RLE pain. Functional Limitations- Work/School Not able to ex due to neck and LBP after ex. Personal Factors Other Personal Factors That May Effect Pt job requiring Therapy/Recovery lifting, pushing, pulling of heavy objects, up to 400#. PT-OP-C Subjective Start: 12/26/21 18:44 Freq: Status: Active Protocol: Document 03/03/22 08:20 LRN (Rec: 03/03/22 09:04 N [id number]) OP-PT Subjective Patient Comments Patient Comments Injection scheduled sometime in March. Pain in back is 6-7/10 in R SIJ region. Pain is constant, dull ache. Sharp with bending down to pick something up or leaning forward. PT-OP-H Neuro Start: 12/26/21 18:44 Freq: Status: Active Protocol: Document 01/02/22 14:33 LRN (Rec: 01/02/22 19:04 LRN [id number]) Sensation Evaluation Gross Sensation Gross Sensation WNL Deep Tendon Reflex & Clonus Assessment Deep Tendon Reflex Bilateral Achilles Deep Tendon Reflex 3+ Normal But Brisk Bilateral Patellar Deep Tendon Reflex 2+ Normal PT-OP-J Posture/Palpation/Skin Start: 12/26/21 18:44 Freq: Status: Active Protocol: Document 01/09/22 13:04 LRN (Rec: 01/09/22 17:09 LRN [id number]) Palpation Assessment Location Leg length Palpation Location Medial malleolus Palpation Details Supine: Slightly long on the R ; Long sit - equal (slight anterior rot of R innominate). PT-OP-K Range of Motion Start: 12/26/21 18:44 Freq: Status: Active Protocol: Document 01/12/22 13:01 LRN (Rec: 01/12/22 13:51 LRN [id number]) Cervical Spine Range of Motion Cervical Spine Active Degrees Testing Position Sitting Flexion 50 Extension 32 Rotation Left 50 Rotation Right 51 Lateral Flexion Left 22 Lateral Flexion Right 25 PT-OP-L Special Tests Start: 12/26/21 18:44 Freq: Status: Active Protocol: Document 01/09/22 13:04 LRN (Rec: 01/09/22 17:12 LRN [id number]) Special Tests Lumbar Spine Special Tests Luis Daniel Test Results - right, + left Comments Testing L - R LBP Slump Test Results + Comments LBP/R hip pain Manual Traction Test Results - Comments No change in back pain Vertical Spine Loading Test Results + Comments LBP Hip Special Tests Log Roll Test Test Results + Comments LBP/R hip pain with IR Scour Test Test Results + Comments LBP/R hip pain PT-OP-M Strength Start: 12/26/21 18:44 Freq: Status: Active Protocol: Document 01/12/22 13:01 LRN (Rec: 01/12/22 13:51 LR [id number]) Hip Strength Hip Manual Muscle Testing Right Flexion (L2) 3 Fair Extension (S1) 3 Fair Abduction 5 Normal Adduction 5 Normal External Rotation 3 Fair Internal Rotation 3+ Fair+ Left Flexion (L2) 3+ Fair+ Extension (S1) 3 Fair Abduction 3 Fair Adduction 4 Good External Rotation 3+ Fair+ Internal Rotation 3+ Fair+ PT-OP-Q Treatments Start: 12/26/21 18:44 Freq: Status: Active Protocol: Document 03/03/22 08:20 LRN (Rec: 03/03/22 09:04 LR [id number]) Cardio Equipment Bicycle (Upright) Duration (Minutes) 8 Resistance 12-15 Seat Position 8 Other HR: 111 bpm (70%) <> 148 bpm (80%) Therapeutic Exercises Supine Exercises Self correction for rotated innominate Supine Exercise Name Self correction for R cake knocker rot innominate w/handout Side right Comments Resisted R hip flex/L hip ext. TA/michel heel slides Supine Exercise Name TA/michel heel slides - training for neutral spine holding Side bilateral TA tightening Supine Exercise Name TA tightening training for neutral spine with LE mvmt Side bilateral Prone Exercises Plank Prone Exercise Name Plank - hands/toes Reps/Minutes 60 sec hold x 2 Comments Much cuing for proper form of plank. Plank - hands/knees Prone Exercise Name Plank: Hands/knees & forearm/ knees Reps/Minutes Holding 30 & 60 secs Comments Extra time taken for training of proper form. Manual Therapy Treatment Soft Tissue Mobilization R SIJ Body Location R posteriorly rotated innominate Mobilization Type Myofascial Release Body Position Supine Comments Correction of R posterior rot and outflared innominate Self-Care/Home Management Treatment Education Patient Education Home Exercise Program Activities Self-Care/Home Management Activities Issued & reviewed HEP: Self correction of R posterior rot innominate, and SIJ dysfunction-phase I program. PT-OP-R Modalities Start: 12/26/21 18:44 Freq: Status: Active Protocol: Document 01/19/22 13:53 LRN (Rec: 01/19/22 14:51 LRN [id number]) Electric Stimulation Electric Stimulation Interferential Current (IFC) Body Location [Sacrum] for R SIJ pain Duration (Minutes) 20 Intensity 12 Target/Sweep Sweep Patient Position Supine Combined With Heat/Cold Hot Pack Comments LBP decreased from 5-6/10 to 4 -5/10. Neck pain 6-7/10. PT-OP-T Assessment and Plan Start: 12/26/21 18:44 Freq: Status: Active Protocol: Document 03/03/22 08:20 LRN (Rec: 03/03/22 09:04 LRN [id number]) Physical Therapy Assessment Goals Four Impairment Decreased core/pelvic strength /stability Short Term Goal (STG) Improve core strength with pt able to maintain core stability with MMT of LE's. STG Duration 02/01/22 Federal Law Clerk Goal (LTG) Improve core strength with pt able to return to his job with minimal onset of LBP and radiating LE pain. 02/24/22: Progressing strengthening w/pt reported dx of herniated discs. LTG Duration 03/17/22 progressing 02/24 Three Impairment Decreased trunk and hip mobility Short Term Goal (STG) Improve hip mobility with pt able to sit or drive without increase in LBP. STG Duration 02/01/22 Federal Law Clerk Goal (LTG) Improve trunk mobility with pt able to tolerate prone lying and exercise without onset of LBP or radiating LE pain. LTG Duration 03/17/22 Two Impairment Constant LBP w/radiating pain down R LE, and post neck pain. Impairment LBP at PSIS level & R LE sharp shooting pain rated 4-6/10 and constant. Neck pain rated 5-7/10 with onset of migraine headaches. Short Term Goal (STG) Decrease LBP to intermittent and eliminate R LE radiating pain STG Duration 02/01/22 Federal Law Clerk Goal (LTG) Eliminate LBP and neck pain with occasional mild onset of soreness with return to work. LTG Duration 03/17/22 One Impairment Lacks appropriate Short Term Goal (STG) STG: Pt will be educated in proper body mechanics for work , transfer and ADLs, and proper sitting and standing posture. 01/12/22: Pt re-educated in proper transfer sit<>supine. STG Duration 01/12/22 (01/05/22: MET GOAL) Federal Law Clerk Goal (LTG) LTG: Pt will be independent and consistent with a self care HEP to manage his R LE pain with return to work. 01/12/22: Educated pt in proper posture, ADLs, use of ice for pain mgmt (LAURA). 01/17/22: HEP: LE neural/ hamstring stretch in sit and supine. Supine: Hip stretches of Fig 4, Piriformis , Lateral Hip stretch. Strengthening: Clamshell/TA. 02/24/22: Pt cleared to start aerobic ex (bike, UBE) and squat ex with handwgts, lat pull down in gym. 02/27/22: Education in proper resting/sidelye sleep position . 03/03/22: Educated in self correction of posterior rot R innominate/L anter rot innominate LTG Duration 03/17/22 progressed 03/03/22. Progress Towards Goals Progress Comments Progressed self care program. Assessment Summary Assessment Pt able to maintain core stability with single leg raise, but not bilateral heel slides. Pt had difficulty maintaining correct plank position for 60 secs, but mild curve of lumbar/thoracic spine with holding. Physical Therapy Plan Frequency and Duration Frequency of Treatment 2x/Week Plan of Care Start Date 01/02/22 Plan of Care End Date 03/17/22 Next Visit Focus/Plan Next Note Type Treatment Note Next Visit Plan POC: Check progress towards goals (2-4). DC on 03/20/22 so pt may seek new POC for transfer to more local clinic in [place]. LBP/R sciatic pain rehab due to herniated discs. Review hip stretches ( piriformis, lateral hip, L fig 4) & clamshell for good recall and for self STM for pain management (verbal review of tennis ball use). Educate pt in best sitting posture for driving. Review base workout ex's to prevent onset of back pain with exercises. Add strengthening: Core stab, L>R hip AB/AD, MICHEL hip flex/ ext/ER/IR. Ex/HEP: (general stretching, L Illiopsoas stretch, functional trunk flex mobility). Manual therapy: Monitor SIJ ( correct R innominate cake knocker rot/L innominate anterior rot & sacral balancing as needed),
--- NOTE | 2022-03-06 17:51 | PT.OTN ---
Current Diagnoses Cervicalgia (03/06/22) Low back pain, unspecified (03/06/22) Muscle weakness (generalized) (03/06/22) Segmental and somatic dysfunction of sacral region (03/06/22) Physical Therapy Treatment Note PT-OP-A Visit Information Start: 12/26/21 18:44 Freq: Status: Active Protocol: Document 03/06/22 09:04 LRN (Rec: 03/06/22 11:30 LRN [id number]) Out-Patient Physical Therapy Visit Information Visit Information Visit Type Treatment Note Visit Start Time 09:04 Visit Stop Time 09:48 Total Visit Minutes 44 Visit Number 11/17 Evaluation Information Evaluation Date 01/02/22 Precautions Precautions Neck pain/migraines with activity. 02/24/22: Pt reports MRI results of back - herniated discs. PT-OP-B Current Condition Start: 12/26/21 18:44 Freq: Status: Active Protocol: Document 01/02/22 14:33 LRN (Rec: 01/02/22 19:04 LRN [id number]) Current Condition History of Current Condition Onset Date 1 yr ago after starting new job. Current Complaints Low back pain at level of PSIS 's, R>L, constant pain. History of Current Condition Experiencing constant pain in lower back. 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 Most of the things that is done requires a two person lift, but most do not ask for help. He feels he is broken because not having help available. did an xray and was sent to PT. Hoping to have an MRI. Pt feels he has a herniated disc due to his job. His father's uncle who is an MD believes it is a herniated disc. Has limited duty given by attending doctor (30 days), therefore can ask for help during this timeframe, otherwise not able to get help without a limited duty status . Sometimes sits slouched or lays on stomach. The only thing that helps is IBP 600 mg . Given 30 days limited duty on Dec 13. Pt is R handed. Prior Treatments and Tests X-ray 2 weeks ago. 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 Future Testing and Treatments Planned Plan course of action if not improving: PT > Injection > MRI > surgery (which pt would not want to do). Treatment Goals Patient/Caregiver Goals Pt goal with therapy is to: eliminate constant pain, further testing to determine reason for pain. Prior Functional Status Baseline Function- ADL's Independent Baseline Function- Mobility Independent Baseline Function- Work/School No back pain, soreness after first starting current job. Baseline Function- Other Exercising 2x/week for 1/2 mile runs, push ups and sit ups, planks. Current Functional Impairments (Reported) Functional Limitations- ADL's LBP with bending down and lift objects (case of water) at home. Not able to lie prone due to radiating RLE pain. Functional Limitations- Work/School Not able to ex due to neck and LBP after ex. Personal Factors Other Personal Factors That May Effect Pt job requiring Therapy/Recovery lifting, pushing, pulling of heavy objects, up to 400#. PT-OP-C Subjective Start: 12/26/21 18:44 Freq: Status: Active Protocol: Document 03/06/22 09:04 LRN (Rec: 03/06/22 11:30 LRN [id number]) OP-PT Subjective Patient Comments Patient Comments Pain in R PSIS is 6/10. Woke with a little more pain, but as he moved around it went back to baseline. States DKTC and Julio Iliopsoas stretch. PT-OP-H Neuro Start: 12/26/21 18:44 Freq: Status: Active Protocol: Document 01/02/22 14:33 LRN (Rec: 01/02/22 19:04 LRN [id number]) Sensation Evaluation Gross Sensation Gross Sensation WNL Deep Tendon Reflex & Clonus Assessment Deep Tendon Reflex Bilateral Achilles Deep Tendon Reflex 3+ Normal But Brisk Bilateral Patellar Deep Tendon Reflex 2+ Normal PT-OP-J Posture/Palpation/Skin Start: 12/26/21 18:44 Freq: Status: Active Protocol: Document 01/09/22 13:04 LRN (Rec: 01/09/22 17:09 LRN [id number]) Palpation Assessment Location Leg length Palpation Location Medial malleolus Palpation Details Supine: Slightly long on the R ; Long sit - equal (slight anterior rot of R innominate). PT-OP-K Range of Motion Start: 11/21/22 18:44 Freq: Status: Active Protocol: Document 01/12/22 13:01 LRN (Rec: 01/12/22 13:51 LRN [id number]) Cervical Spine Range of Motion Cervical Spine Active Degrees Testing Position Sitting Flexion 50 Extension 32 Rotation Left 50 Rotation Right 51 Lateral Flexion Left 22 Lateral Flexion Right 25 PT-OP-L Special Tests Start: 12/26/21 18:44 Freq: Status: Active Protocol: Document 01/09/22 13:04 LRN (Rec: 01/09/22 17:12 LRN [id number]) Special Tests Lumbar Spine Special Tests Luis Daniel Test Results - right, + left Comments Testing L - R LBP Slump Test Results + Comments LBP/R hip pain Manual Traction Test Results - Comments No change in back pain Vertical Spine Loading Test Results + Comments LBP Hip Special Tests Log Roll Test Test Results + Comments LBP/R hip pain with IR Scour Test Test Results + Comments LBP/R hip pain PT-OP-M Strength Start: 12/26/21 18:44 Freq: Status: Active Protocol: Document 01/12/22 13:01 LRN (Rec: 01/12/22 13:51 LRN [id number]) Hip Strength Hip Manual Muscle Testing Right Flexion (L2) 3 Fair Extension (S1) 3 Fair Abduction 5 Normal Adduction 5 Normal External Rotation 3 Fair Internal Rotation 3+ Fair+ Left Flexion (L2) 3+ Fair+ Extension (S1) 3 Fair Abduction 3 Fair Adduction 4 Good External Rotation 3+ Fair+ Internal Rotation 3+ Fair+ PT-OP-Q Treatments Start: 12/26/21 18:44 Freq: Status: Active Protocol: Document 03/06/22 09:04 LRN (Rec: 03/06/22 11:30 LRN [id number]) Cardio Equipment Bicycle (Upright) Duration (Minutes) 8 Resistance 12-15 Seat Position 8 Other HR: 111 bpm (70%) <> 148 bpm (80%) Therapeutic Exercises Supine Exercises Iliopsoas stretch Supine Exercise Name Luis Daniel Test position with leg over the side. Side bilateral Comments R SIJ pn on R, L anterior hip stretch on L Sidelying Exercises TA tightening Sidelying Exercise Name TA tightening for stability during hip flexor stretch Side bilateral Reps/Minutes 4' Comments Phys & v cuing needed throughout hip flexor stretching Sitting Exercises Iliopsoas stretch Sitting Exercise Name Iliopsoas stretch side sitting for R hip ext. Side right Reps/Minutes 2' Comments Not able to get good stretch after multiple positional adjustments Standing Exercises Iliopsoas stretch Standing Exercise Name Runners stretch Side bilateral Reps/Minutes 60 x 1 Comments Extra time to obtain correct positioning for stretch Manual Therapy Treatment Soft Tissue Mobilization JENNI MFR Body Location Bilateral Ilipsoas & Quads Body Position Sidelying R Iliopsoas Body Location R Iliopsoas Release Mobilization Type Sustained Pressure Body Position Supine PT-OP-R Modalities Start: 12/26/21 18:44 Freq: Status: Active Protocol: Document 01/19/22 13:53 LRN (Rec: 01/19/22 14:51 LRN [id number]) Electric Stimulation Electric Stimulation Interferential Current (IFC) Body Location [Sacrum] for R SIJ pain Duration (Minutes) 20 Intensity 12 Target/Sweep Sweep Patient Position Supine Combined With Heat/Cold Hot Pack Comments LBP decreased from 5-6/10 to 4 -5/10. Neck pain 6-7/10. PT-OP-T Assessment and Plan Start: 12/26/21 18:44 Freq: Status: Active Protocol: Document 03/06/22 09:04 LRN (Rec: 03/06/22 11:30 LRN [id number]) Physical Therapy Assessment Goals Four Impairment Decreased core/pelvic strength /stability Short Term Goal (STG) Improve core strength with pt able to maintain core stability with MMT of LE's. STG Duration 02/01/22 Forge Operator Helper Goal (LTG) Improve core strength with pt able to return to his job with minimal onset of LBP and radiating LE pain. 02/24/22: Progressing strengthening w/pt reported dx of herniated discs. LTG Duration 03/17/22 progressing 02/24 Three Impairment Decreased trunk and hip mobility Short Term Goal (STG) Improve hip mobility with pt able to sit or drive without increase in LBP. STG Duration 02/01/22 Forge Operator Helper Goal (LTG) Improve trunk mobility with pt able to tolerate prone lying and exercise without onset of LBP or radiating LE pain. LTG Duration 03/17/22 Two Impairment Constant LBP w/radiating pain down R LE, and post neck pain. Impairment LBP at PSIS level & R LE sharp shooting pain rated 4-6/10 and constant. Neck pain rated 5-7/10 with onset of migraine headaches. Short Term Goal (STG) Decrease LBP to intermittent and eliminate R LE radiating pain STG Duration 02/01/22 Correction Goal (LTG) Eliminate LBP and neck pain with occasional mild onset of soreness with return to work. LTG Duration 03/17/22 One Impairment Lacks appropriate Short Term Goal (STG) STG: Pt will be educated in proper body mechanics for work , transfer and ADLs, and proper sitting and standing posture. 01/12/22: Pt re-educated in proper transfer sit<>supine. STG Duration 01/12/22 (01/05/22: MET GOAL) Forge Operator Helper Goal (LTG) LTG: Pt will be independent and consistent with a self care HEP to manage his R LE pain with return to work. 01/12/22: Educated pt in proper posture, ADLs, use of ice for pain mgmt (RICE). 01/17/22: HEP: LE neural/ hamstring stretch in sit and supine. Supine: Hip stretches of Fig 4, Piriformis , Lateral Hip stretch. Strengthening: Clamshell/TA. 02/24/22: Pt cleared to start aerobic ex (bike, UBE) and squat ex with handwgts, lat pull down in gym. 02/27/22: Education in proper resting/sidelye sleep position . 03/03/22: Educated in self correction of posterior rot R innominate/L anter rot innominate LTG Duration 03/17/22 progressed 03/03/22. Assessment Summary Assessment Pt has less R SIJ pain after Ilipsoas stretch bilterally. He shows greater awareness of the importance of TA tightening and reducing lumbar lordosis/anterior pelvic tilt . Pain is same. Physical Therapy Plan Frequency and Duration Frequency of Treatment 2x/Week Plan of Care Start Date 01/02/22 Plan of Care End Date 03/17/22 Next Visit Focus/Plan Next Note Type Treatment Note Next Visit Plan POC: Check progress towards goals (2-4). DC on 03/20/22 so pt may seek new POC for transfer to more local clinic in [place]. LBP/R sciatic pain rehab due to herniated discs. Review hip stretches ( piriformis, lateral hip, L fig 4) & clamshell for good recall and for self STM for pain management (verbal review of tennis ball use). Educate pt in best sitting posture for driving. Review base workout ex's to prevent onset of back pain with exercises. Add strengthening: Core stab, L>R hip AB/AD, JULIO hip flex/ ext/ER/IR. Ex/HEP: (general stretching, L Illiopsoas stretch, functional trunk flex mobility). Manual therapy: Monitor SIJ ( correct R innominate corporate travel expert rot/L innominate anterior rot & sacral balancing as needed),
--- NOTE | 2022-03-10 11:23 | PT.OTN ---
Current Diagnoses Cervicalgia (03/10/22) Low back pain, unspecified (03/10/22) Muscle weakness (generalized) (03/10/22) Segmental and somatic dysfunction of sacral region (03/10/22) Physical Therapy Treatment Note PT-OP-A Visit Information Start: 12/26/21 18:44 Freq: Status: Active Protocol: Document 03/10/22 10:35 SP (Rec: 03/10/22 11:50 SP [id number]) Out-Patient Physical Therapy Visit Information Visit Information Visit Type Treatment Note Visit Start Time 10:35 Visit Stop Time 11:23 Total Visit Minutes 48 Visit Number 12/18 Number of CORPORATE ACCOUNTANT Visits 1 Evaluation Information Evaluation Date 01/02/22 Precautions Precautions Neck pain/migraines with activity. 02/24/22: Pt reports MRI results of back - herniated discs. PT-OP-B Current Condition Start: 12/26/21 18:44 Freq: Status: Active Protocol: Document 01/02/22 14:33 LRN (Rec: 01/02/22 19:04 LRN [id number]) Current Condition History of Current Condition Onset Date 1 yr ago after starting new job. Current Complaints Low back pain at level of PSIS 's, R>L, constant pain. History of Current Condition Experiencing constant pain in lower back. 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 Most of the things that is done requires a two person lift, but most do not ask for help. He feels he is broken because not having help available. did an xray and was sent to PT. Hoping to have an MRI. Pt feels he has a herniated disc due to his job. His father's uncle who is an MD believes it is a herniated disc. Has limited duty given by attending doctor (30 days), therefore can ask for help during this timeframe, otherwise not able to get help without a limited duty status . Sometimes sits slouched or lays on stomach. The only thing that helps is IBP 600 mg . Given 30 days limited duty on Dec 13. Pt is R handed. Prior Treatments and Tests X-ray 2 weeks ago. 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 Future Testing and Treatments Planned Plan course of action if not improving: PT > Injection > MRI > surgery (which pt would not want to do). Treatment Goals Patient/Caregiver Goals Pt goal with therapy is to: eliminate constant pain, further testing to determine reason for pain. Prior Functional Status Baseline Function- ADL's Independent Baseline Function- Mobility Independent Baseline Function- Work/School No back pain, soreness after first starting current job. Baseline Function- Other Exercising 2x/week for 1/2 mile runs, push ups and sit ups, planks. Current Functional Impairments (Reported) Functional Limitations- ADL's LBP with bending down and lift objects (case of water) at home. Not able to lie prone due to radiating RLE pain. Functional Limitations- Work/School Not able to ex due to neck and LBP after ex. Personal Factors Other Personal Factors That May Effect Pt job requiring Therapy/Recovery lifting, pushing, pulling of heavy objects, up to 400#. PT-OP-C Subjective Start: 12/26/21 18:44 Freq: Status: Active Protocol: Document 03/10/22 10:35 SP (Rec: 03/10/22 11:50 SP [id number]) OP-PT Subjective Patient Comments Patient Comments Pt reports thinks next tx will be his last tx. He joined [employer] and trialing some machines, rows caused pain in LB and didn't have much resistance. PT-OP-H Neuro Start: 12/26/21 18:44 Freq: Status: Active Protocol: Document 01/02/22 14:33 LRN (Rec: 01/02/22 19:04 LRN [id number]) Sensation Evaluation Gross Sensation Gross Sensation WNL Deep Tendon Reflex & Clonus Assessment Deep Tendon Reflex Bilateral Achilles Deep Tendon Reflex 3+ Normal But Brisk Bilateral Patellar Deep Tendon Reflex 2+ Normal PT-OP-J Posture/Palpation/Skin Start: 12/26/21 18:44 Freq: Status: Active Protocol: Document 01/09/22 13:04 LRN (Rec: 01/09/22 17:09 LRN [id number]) Palpation Assessment Location Leg length Palpation Location Medial malleolus Palpation Details Supine: Slightly long on the R ; Long sit - equal (slight anterior rot of R innominate). PT-OP-K Range of Motion Start: 12/26/21 18:44 Freq: Status: Active Protocol: Document 01/12/22 13:01 LRN (Rec: 01/12/22 13:51 LRN [id number]) Cervical Spine Range of Motion Cervical Spine Active Degrees Testing Position Sitting Flexion 50 Extension 32 Rotation Left 50 Rotation Right 51 Lateral Flexion Left 22 Lateral Flexion Right 25 PT-OP-L Special Tests Start: 12/26/21 18:44 Freq: Status: Active Protocol: Document 01/09/22 13:04 LRN (Rec: 01/09/22 17:12 LRN [id number]) Special Tests Lumbar Spine Special Tests Luis Daniel Test Results - right, + left Comments Testing L - R LBP Slump Test Results + Comments LBP/R hip pain Manual Traction Test Results - Comments No change in back pain Vertical Spine Loading Test Results + Comments LBP Hip Special Tests Log Roll Test Test Results + Comments LBP/R hip pain with IR Scour Test Test Results + Comments LBP/R hip pain PT-OP-M Strength Start: 12/26/21 18:44 Freq: Status: Active Protocol: Document 01/12/22 13:01 LRN (Rec: 01/12/22 13:51 LRN [id number]) Hip Strength Hip Manual Muscle Testing Right Flexion (L2) 3 Fair Extension (S1) 3 Fair Abduction 5 Normal Adduction 5 Normal External Rotation 3 Fair Internal Rotation 3+ Fair+ Left Flexion (L2) 3+ Fair+ Extension (S1) 3 Fair Abduction 3 Fair Adduction 4 Good External Rotation 3+ Fair+ Internal Rotation 3+ Fair+ PT-OP-Q Treatments Start: 12/26/21 18:44 Freq: Status: Active Protocol: Document 03/10/22 10:35 SP (Rec: 03/10/22 11:50 SP [id number]) Gym Equipment Shuttle Recovery bilateral squat Details PPT/ TA Resistance 75# ( 2 new band) Shuttle Recovery Platform Stable Reps/Time x20 reps Therapeutic Exercises Supine Exercises bridging Supine Exercise Name gym review-glut bridge, ( unable SL bridge LBP) Side bilateral Resistance AROM> 10#> 20# DBs (over pelvis) Reps/Minutes 10 reps each resistance Comments cued TA/PPT- good response Iliopsoas stretch Supine Exercise Name Luis Daniel Test position with leg over the side. Side bilateral Comments self PPT corrections TA tightening Supine Exercise Name TA tightening training for neutral spine with LE mvmt Side bilateral Reps/Minutes 5SH x5 prep ex Prone Exercises Plank Prone Exercise Name Plank - elbows toes: fwd and side Side bilateral Reps/Minutes 60 SH x 2 fwd, 15SH side Comments occasional cues head/upper body alignment- good form/ response Standing Exercises lunge Resistance 5# DB BUEs held at side Reps/Minutes x10 each side Comments cued TA/ PPT awareness and range able- good resp Iliopsoas stretch Standing Exercise Name facing wall PPT /pelvis fwd wt shift, 1/2 kneel Side bilateral Reps/Minutes 60 x 1 Comments good response Squat training Standing Exercise Name Squat training Resistance AROM> 5# DB>10# DB held at chest Reps/Minutes x10 Comments cues hip hinge, buttocks back- good response Other Exercises self STMs Other Exercise Name initiated: quad, HS, calf, add , ITB, TS Side bilateral Equipment Used foam roller, discussed ball wall: ES, glut Reps/Minutes 3 min total Comments good feedback response, cued PPT ITB/quad and CS neutral PT-OP-R Modalities Start: 12/26/21 18:44 Freq: Status: Active Protocol: Document 01/19/22 13:53 LRN (Rec: 01/19/22 14:51 LRN [id number]) Electric Stimulation Electric Stimulation Interferential Current (IFC) Body Location [Sacrum] for R SIJ pain Duration (Minutes) 20 Intensity 12 Target/Sweep Sweep Patient Position Supine Combined With Heat/Cold Hot Pack Comments LBP decreased from 5-6/10 to 4 -5/10. Neck pain 6-7/10. PT-OP-T Assessment and Plan Start: 12/26/21 18:44 Freq: Status: Active Protocol: Document 03/10/22 10:35 SP (Rec: 03/10/22 11:50 SP [id number]) Physical Therapy Assessment Goals Four Impairment Decreased core/pelvic strength /stability Short Term Goal (STG) Improve core strength with pt able to maintain core stability with MMT of LE's. 03/10/22: progressing: functional TA wt squat and lunge, shuttle rec, bridge weighted, plank off elbows. STG Duration 02/01/22 progressing 03/10/22 Field Seismologist Goal (LTG) Improve core strength with pt able to return to his job with minimal onset of LBP and radiating LE pain. 02/24/22: Progressing strengthening w/pt reported dx of herniated discs. 03/10/22: progressing: functional TA wt squat and lunge, shuttle rec, bridge weighted, plank off elbows. LTG Duration 03/17/22 progressing Three Impairment Decreased trunk and hip mobility Short Term Goal (STG) Improve hip mobility with pt able to sit or drive without increase in LBP. STG Duration 02/01/22 Half-Way Goal (LTG) Improve trunk mobility with pt able to tolerate prone lying and exercise without onset of LBP or radiating LE pain. 03/10/22: progressed elbow plank off feet good self corrections up to 60s. LTG Duration 03/17/22 progressing 03/10/22 Two Impairment Constant LBP w/radiating pain down R LE, and post neck pain. Impairment LBP at PSIS level & R LE sharp shooting pain rated 4-6/10 and constant. Neck pain rated 5-7/10 with onset of migraine headaches. Short Term Goal (STG) Decrease LBP to intermittent and eliminate R LE radiating pain STG Duration 02/01/22 Half-Way Goal (LTG) Eliminate LBP and neck pain with occasional mild onset of soreness with return to work 03/10/22: pt reports neck ok today, still gets pain down leg but less. LTG Duration 03/17/22 03/10/22 One Impairment Lacks appropriate Short Term Goal (STG) STG: Pt will be educated in proper body mechanics for work , transfer and ADLs, and proper sitting and standing posture. 01/12/22: Pt re-educated in proper transfer sit<>supine. STG Duration 01/12/22 (01/05/22: MET GOAL) Field Seismologist Goal (LTG) LTG: Pt will be independent and consistent with a self care HEP to manage his R LE pain with return to work. 01/12/22: Educated pt in proper posture, ADLs, use of ice for pain mgmt (RICE). 01/17/22: HEP: LE neural/ hamstring stretch in sit and supine. Supine: Hip stretches of Fig 4, Piriformis , Lateral Hip stretch. Strengthening: Clamshell/TA. 02/24/22: Pt cleared to start aerobic ex (bike, UBE) and squat ex with handwgts, lat pull down in gym. 02/27/22: Education in proper resting/sidelye sleep position . 03/03/22: Educated in self correction of posterior rot R innominate/L anter rot innominate 03/10/22: initiated wt squat, wt lunges, wt bridge, planks off elbows, stand 1/2 kneel psoas and hip flexor stretch- good response. LTG Duration 03/17/22 progressed 03/10/22. Assessment Summary Assessment Pt responded well to functional strengthening today wt'd with awareness of PPT/ TA and ROM effort no LOB/ arch recruitment. Initited use foam roller for self massage and support flexibility. Declined HOs. Pt stated feel good, back feels better. Physical Therapy Plan Frequency and Duration Frequency of Treatment 2x/Week Plan of Care Start Date 01/02/22 Plan of Care End Date 03/17/22 Therapeutic Interventions Therapeutic Interventions Aquatic Therapy,Home Exercise Program,Joint Mobilizations, Manual Therapy,Neuromuscular Re-education,Patient/Caregiver Education,Self-Care/Home Management,Soft Tissue Mobilization,Taping, Therapeutic Activities, Therapeutic Exercises Modalities Cold Pack/Ice Massage,Electric Stimulation,Hot Packs, Iontophoresis,Traction- Mechanical,Ultrasound Other Therapeutic Interventions Iontophoresis with 4 mg/ml Dexamethasone with Sodium Phosphate. Next Visit Focus/Plan Next Note Type Treatment Note Next Visit Plan CHeck response to functional gym ex/ rolling last tx. POC: Check progress towards goals (2-4). DC by 03/17/22 so pt may seek new POC for transfer to more local clinic in [place]. LBP/R sciatic pain rehab due to herniated discs. Review hip stretches ( piriformis, lateral hip, L fig 4) & clamshell for good recall and for self STM for pain management (verbal review of tennis ball use). Educate pt in best sitting posture for driving. Review base workout ex's to prevent onset of back pain with exercises. Add strengthening: Core stab, L>R hip AB/AD, MICHEL hip flex/ ext/ER/IR. Ex/HEP: (general stretching, L Illiopsoas stretch, functional trunk flex mobility). Manual therapy: Monitor SIJ ( correct R innominate conductor freight rot/L innominate anterior rot & sacral balancing as needed),
--- NOTE | 2022-03-13 17:49 | PT.OTN ---
Current Diagnoses Cervicalgia (03/13/22) Low back pain, unspecified (03/13/22) Muscle weakness (generalized) (03/13/22) Segmental and somatic dysfunction of sacral region (03/13/22) Physical Therapy Treatment Note PT-OP-A Visit Information Start: 12/26/21 18:44 Freq: Status: Active Protocol: Document 03/13/22 13:48 LRN (Rec: 03/13/22 14:25 LRN [id number]) Out-Patient Physical Therapy Visit Information Visit Information Visit Type Treatment Note Visit Start Time 13:48 Visit Stop Time 14:40 Total Visit Minutes 52 Visit Number 01/17 Evaluation Information Evaluation Date 01/02/22 Precautions Precautions Neck pain/migraines with activity. 02/24/22: Pt reports MRI results of back - herniated discs. PT-OP-B Current Condition Start: 12/26/21 18:44 Freq: Status: Active Protocol: Document 01/02/22 14:33 LRN (Rec: 01/02/22 19:04 LRN [id number]) Current Condition History of Current Condition Onset Date 1 yr ago after starting new job. Current Complaints Low back pain at level of PSIS 's, R>L, constant pain. History of Current Condition Experiencing constant pain in lower back. 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 Most of the things that is done requires a two person lift, but most do not ask for help. He feels he is broken because not having help available. did an xray and was sent to PT. Hoping to have an MRI. Pt feels he has a herniated disc due to his job. His father's uncle who is an MD believes it is a herniated disc. Has limited duty given by attending doctor (30 days), therefore can ask for help during this timeframe, otherwise not able to get help without a limited duty status . Sometimes sits slouched or lays on stomach. The only thing that helps is IBP 600 mg . Given 30 days limited duty on Dec 13. Pt is R handed. Prior Treatments and Tests X-ray 2 weeks ago. 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 Future Testing and Treatments Planned Plan course of action if not improving: PT > Injection > MRI > surgery (which pt would not want to do). Treatment Goals Patient/Caregiver Goals Pt goal with therapy is to: eliminate constant pain, further testing to determine reason for pain. Prior Functional Status Baseline Function- ADL's Independent Baseline Function- Mobility Independent Baseline Function- Work/School No back pain, soreness after first starting current job. Baseline Function- Other Exercising 2x/week for 1/2 mile runs, push ups and sit ups, planks. Current Functional Impairments (Reported) Functional Limitations- ADL's LBP with bending down and lift objects (case of water) at home. Not able to lie prone due to radiating RLE pain. Functional Limitations- Work/School Not able to ex due to neck and LBP after ex. Personal Factors Other Personal Factors That May Effect Pt job requiring Therapy/Recovery lifting, pushing, pulling of heavy objects, up to 400#. PT-OP-C Subjective Start: 12/26/21 18:44 Freq: Status: Active Protocol: Document 03/13/22 13:48 LRN (Rec: 03/13/22 14:25 LRN [id number]) OP-PT Subjective Patient Comments Patient Comments Was doing work on car yesterday. Back started to hurt bad and was sharp; took IBP, but in the morning pain was the same as the night before. 2 hrs ago was given an injection and was given a shot and was given Voltarin gel and patch and a pain medication. Pain rating is back to normal, 6-7/10. Requesting EStim to decrease the pain. PT-OP-H Neuro Start: 12/26/21 18:44 Freq: Status: Active Protocol: Document 01/02/22 14:33 LRN (Rec: 01/02/22 19:04 LRN [id number]) Sensation Evaluation Gross Sensation Gross Sensation WNL Deep Tendon Reflex & Clonus Assessment Deep Tendon Reflex Bilateral Achilles Deep Tendon Reflex 3+ Normal But Brisk Bilateral Patellar Deep Tendon Reflex 2+ Normal PT-OP-J Posture/Palpation/Skin Start: 12/26/21 18:44 Freq: Status: Active Protocol: Document 01/09/22 13:04 LRN (Rec: 01/09/22 17:09 LRN [id number]) Palpation Assessment Location Leg length Palpation Location Medial malleolus Palpation Details Supine: Slightly long on the R ; Long sit - equal (slight anterior rot of R innominate). PT-OP-K Range of Motion Start: 12/26/21 18:44 Freq: Status: Active Protocol: Document 01/12/22 13:01 LRN (Rec: 01/12/22 13:51 LRN [id number]) Cervical Spine Range of Motion Cervical Spine Active Degrees Testing Position Sitting Flexion 50 Extension 32 Rotation Left 50 Rotation Right 51 Lateral Flexion Left 22 Lateral Flexion Right 25 PT-OP-L Special Tests Start: 12/26/21 18:44 Freq: Status: Active Protocol: Document 01/09/22 13:04 LRN (Rec: 01/09/22 17:12 LRN [id number]) Special Tests Lumbar Spine Special Tests Luis Daniel Test Results - right, + left Comments Testing L - R LBP Slump Test Results + Comments LBP/R hip pain Manual Traction Test Results - Comments No change in back pain Vertical Spine Loading Test Results + Comments LBP Hip Special Tests Log Roll Test Test Results + Comments LBP/R hip pain with IR Scour Test Test Results + Comments LBP/R hip pain PT-OP-M Strength Start: 12/26/21 18:44 Freq: Status: Active Protocol: Document 01/12/22 13:01 LRN (Rec: 01/12/22 13:51 LRN [id number]) Hip Strength Hip Manual Muscle Testing Right Flexion (L2) 3 Fair Extension (S1) 3 Fair Abduction 5 Normal Adduction 5 Normal External Rotation 3 Fair Internal Rotation 3+ Fair+ Left Flexion (L2) 3+ Fair+ Extension (S1) 3 Fair Abduction 3 Fair Adduction 4 Good External Rotation 3+ Fair+ Internal Rotation 3+ Fair+ PT-OP-Q Treatments Start: 12/26/21 18:44 Freq: Status: Active Protocol: Document 03/13/22 13:48 LRN (Rec: 03/13/22 14:25 LRN [id number]) Therapeutic Exercises Supine Exercises bridging Supine Exercise Name glut bridge Side bilateral Resistance AROM Reps/Minutes 10 reps Comments cued TA/PPT Self correction for rotated innominate Supine Exercise Name Self correction for R anter rot innominate Side right Reps/Minutes 20' Comments Resisted R hip flex/L hip ext, bridging, DKTC stretch. Other Exercises Transfer training Other Exercise Name Sit<>supine training Side left Reps/Minutes 4' Self-Care/Home Management Treatment Education Other Education Discussed at length pt ex tolerance and not to compare to others exercise fitness. Activities Self-Care/Home Management Activities Verbally reviewed self care ex 's at his gym and reinforced pt to avoid excessive trunk flex ex's (row, sit ups other than chest lifts) and discusssed posturing with ex's that challenge his core stability. General review of pt's HEP of stretches. PT-OP-R Modalities Start: 12/26/21 18:44 Freq: Status: Active Protocol: Document 03/13/22 13:48 LRN (Rec: 03/13/22 14:27 LRN [id number]) Electric Stimulation Electric Stimulation Interferential Current (IFC) Body Location [Sacrum] for R SIJ pain Duration (Minutes) 15 Intensity 12 Target/Sweep Sweep Patient Position Supine Combined With Heat/Cold Hot Pack PT-OP-T Assessment and Plan Start: 12/26/21 18:44 Freq: Status: Active Protocol: Document 03/13/22 13:48 LRN (Rec: 03/13/22 14:25 LRN [id number]) Physical Therapy Assessment Goals Four Impairment Decreased core/pelvic strength /stability Short Term Goal (STG) Improve core strength with pt able to maintain core stability with MMT of LE's. 03/10/22: progressing: functional TA wt squat and lunge, shuttle rec, bridge weighted, plank off elbows. STG Duration 02/01/22 progressing 03/10/22, goal not met Halfway Goal (LTG) Improve core strength with pt able to return to his job with minimal onset of LBP and radiating LE pain. 02/24/22: Progressing strengthening w/pt reported dx of herniated discs. 03/10/22: progressing: functional TA wt squat and lunge, shuttle rec, bridge weighted, plank off elbows. LTG Duration 03/17/22 progressing , goal not met. Three Impairment Decreased trunk and hip mobility Short Term Goal (STG) Improve hip mobility with pt able to sit or drive without increase in LBP. 03/13/22: Not able to drive due to LBP since yesterday. After pain injection is able to drive without an increase in LBP. Prior to flare up was sporadically able to drive without an increase in LBP. STG Duration 02/01/22 progressed 03/13/22, goal not met. Halfway Goal (LTG) Improve trunk mobility with pt able to tolerate prone lying and exercise without onset of LBP or radiating LE pain. 03/10/22: progressed elbow plank off feet good self corrections up to 60s. 03/13/22: Able to prone position without onset LBP or radiating LE pain depending on hardness of surface. LTG Duration 03/17/22 progressing 03/13/22, goal not met. Two Impairment Constant LBP w/radiating pain down R LE, and post neck pain. Impairment LBP at PSIS level & R LE sharp shooting pain rated 4-6/10 and constant. Neck pain rated 5-7/10 with onset of migraine headaches. Short Term Goal (STG) Decrease LBP to intermittent and eliminate R LE radiating pain. 03/13/22: Sporadic R LE pain until yesterday, had severe R LE pain. STG Duration 02/01/22 Worsened yesterday 03/13/22, goal not met. Halfway Goal (LTG) Eliminate LBP and neck pain with occasional mild onset of soreness with return to work 03/10/22: pt reports neck ok today, still gets pain down leg but less. 03/13/22: Neck is okay, R hip/ LE leg pain rated 5-6/10 since reinjury 03/12/22 (pushed object with RLE). LTG Duration 03/17/22 Worsened yesterday 03/13/22, goal not met. One Impairment Lacks appropriate Short Term Goal (STG) STG: Pt will be educated in proper body mechanics for work , transfer and ADLs, and proper sitting and standing posture. 01/12/22: Pt re-educated in proper transfer sit<>supine. STG Duration 01/12/22 (01/05/22: MET GOAL) Relationship Executive Goal (LTG) LTG: Pt will be independent and consistent with a self care HEP to manage his R LE pain with return to work. 01/12/22: Educated pt in proper posture, ADLs, use of ice for pain mgmt (RICE). 01/17/22: HEP: LE neural/ hamstring stretch in sit and supine. Supine: Hip stretches of Fig 4, Piriformis , Lateral Hip stretch. Strengthening: Clamshell/TA. 02/24/22: Pt cleared to start aerobic ex (bike, UBE) and squat ex with handwgts, lat pull down in gym. 02/27/22: Education in proper resting/sidelye sleep position . 03/03/22: Educated in self correction of posterior rot R innominate/L anter rot innominate 03/10/22: initiated wt squat, wt lunges, wt bridge, planks off elbows, stand 1/2 kneel psoas and hip flexor stretch- good response. LTG Duration 03/17/22 progressed 03/13/22, pt still having R LB/LE pain. Assessment Summary Assessment The pt presents today in a post pain-medicated state followin a LB flare up after working on a car with a friend . The pt demonstrated an anteriorly rotated R innominate that was corrected with self mob requiring v. cuing and review. Much time needed for training of self assessment for pelvic obiliquity self correction. Time was needed for pt review of self care program. Pt has poor habit of improper transfer for protection of stress on the low back. The pt would benefit from continued physical therapy for core strengthening and rehab and continued education on proper body mechanics and postural awareness at a clinic closer to his work/home location; therfore the pt is being discharged from physical therapy at this time so that he may seek a new referral for location closer to his home. Physical Therapy Plan Discharge Physical Therapy Discharge Reasons Patient Request Discharge Comments Some goals met. Pt seeking further medical advise for his LBP/R hip pain, and a PT rehab program at a location that would be more convenient for him to attend. He is needing a physical therapy program closer to his workplace and home; therefore recommend pt receive a new referral for PT at a rehab facility more convenient for him.
== END 2022-03-15 11:51 | disposition home or self-care (01) ==
LOC: PHYS 13:45
PROVIDERS: Family Provider Student in an Organized Health Care Education/Training Program; PCP Student in an Organized Health Care Education/Training Program; Referring Provider Student in an Organized Health Care Education/Training Program; Visit Provider Student in an Organized Health Care Education/Training Program
DX: M54.50 Low back pain, unspecified (principal); M54.2 Cervicalgia; M62.81 Muscle weakness (generalized); M99.04 Segmental and somatic dysfunction of sacral region
CPT/HCPCS: 97014; 97110; 97140; 97162; 97535; G0283

== ENCOUNTER → 2022-07-20 08:24 | Outpatient (CLI) | payer OTHER, SELFPAY ==
--- NOTE | 2022-07-20 | DI.MRI.S_ITS ---
PROCEDURE: MR CERVICAL SPINE WO CON INDICATIONS: Cervicalgia TECHNIQUE: Noncontrast sagittal T1 spin echo and T2 fast spin echo, sagittal STIR, foraminal oblique sagittal T2 fast spin echo, and axial gradient echo or T2 fast spin echo through the cervical spine. COMPARISON: None. FINDINGS: Image quality: Excellent. Alignment and Curvature: There is mild straightening of normal cervical lordosis. Bone Marrow: Marrow demonstrates normal overall signal. Spinal Cord: Visualized spinal cord has normal size and signal. No cerebellar tonsillar herniation. Paraspinous Soft Tissues: No paravertebral masses. Prevertebral soft tissues are normal in thickness. C2-C3: Loss of disc signal is seen. No significant canal stenosis or neural foraminal narrowing. C3-C4: Loss of disc signal. Mild diffuse disc bulge is seen. There is mild central canal stenosis and left-sided neural foraminal narrowing. C4-C5: There is loss of disc signal. Diffuse disc bulge and bilateral facet hypertrophic changes are noted causing mild central canal stenosis and left worse than right bilateral neural foraminal narrowing. C5-C6: Loss of disc signal. Diffuse disc bulge and bilateral facet hypertrophic changes are seen. Mild central canal stenosis and [id number] bilateral neural foraminal narrowing is noted. C6-C7: Loss of disc height and disc signal. Central to left-sided disc bulge and bilateral facet hypertrophic changes are seen with mild central canal stenosis and moderate left-sided neural foraminal narrowing. C7-T1: Normal appearance. IMPRESSION: 1. Mild degenerative disc disease throughout cervical spine with mild central canal stenosis and various degrees of bilateral neural foraminal narrowing as described above. 2. No marrow edema. No acute compression fracture or spondylolisthesis. 3. No gross abnormal cervical spinal cord signal. Dictated by: Eriberto Arnold M.D. on 07/20/2022 at 9:33 Approved by: Eriberto Arnold M.D. on 07/20/2022 at 9:35
== END ==
PROVIDERS: Family Provider Student in an Organized Health Care Education/Training Program; PCP Student in an Organized Health Care Education/Training Program; Referring Provider Student in an Organized Health Care Education/Training Program; Visit Provider Student in an Organized Health Care Education/Training Program
DX: M50.31 Other cervical disc degeneration, high cervical region (principal); M48.02 Spinal stenosis, cervical region
CPT/HCPCS: 72141